=== PATIENT | male | born 1945 | race Caucasian/White ===

== ENCOUNTER → 2018-02-04 | Day surgery (SDC) | payer BC ==
[2018-01-24 09:08] VITALS: BMI 25.0
[~2018-02-04] VITALS: Ht 175.3 cm; Wt 77.3 kg
[~2018-02-04] MED LIST: ALFA250T PO; CHOL1000 PO; GARLTAB3 PO; LIDOCAINE HCL 2% 2 ML VIAL (20MG/ML) ONE; MIDAZOLAM HCL 1 MG/ML 2ML VIAL ONE; ONDANSETRON INJ 2 MG/ML 2 ML VIAL ONE; PROB1TAB16 PO; PROPOFOL IV EMULSION 10 MG/ML 20 ML VIAL ONE; SODIUM CHLORIDE 0.9% 500ML 500 ML IV ONE; [UNRECOGNIZED DRUG - CODE] PO; [UNRECOGNIZED DRUG - OTHER] PO
[2018-02-04 08:00] VITALS: Ht 175.3 cm; Wt 77.3 kg
--- NOTE | 2018-02-04 08:39 | Endo History and Physical ---
History & Physical Date of Service: Feb 04, 2018. Chief Complaint: SCREENING Referring Physician: DR. DICKINSON History of Present Illness 72 yo CM who presents for screening colonoscopy. Past Surgical History Hx Cardiac Surgery: No Hx Internal Defibrillator: No Hx Pacemaker: No Hx Abdominal Surgery: No Hx of Implantable Prosthesis: No Hx Post-Op Nausea and Vomiting: No Hx Cancer Surgery: Yes (BCC REMOVED, MELANOMA REMOVED) Hx Thoracic Surgery: No Hx Orthopedic: Yes (R RCR, L KNEE MENISCUS REPAIR) Hx Urinary Tract Surgery: No Family History None Social History Smoking Status: Never Smoker Hx Substance Use: No Hx Alcohol Use: Yes (BEER--A DOZEN A WEEK) Allergies Coded Allergies: No Known Allergies (Unverified , 02/04/18) Current Medications Reported Home Medications Medications Dose Route/Sig Max Daily Dose Days Date Category [Garlic] 1 Dose PO DAILY 01/24/18 Reported Vitamin D3 (Cholecalciferol) 1,000 Unit Tab 1 Tab PO DAILY 01/24/18 Reported Isabella 250 Mg Tab 1 Tab PO DAILY 01/24/18 Reported Preb-2 (Prebiotic Product) 1 David David 1 Tab PO DAILY 01/24/18 Reported Probiotic (Probiotic Product) 1 Tab Tab 1 Tab PO DAILY 01/24/18 Reported [Shaklee Vitamin] 1 Dose PO DAILY 01/24/18 Reported Vital Signs Weight (Kilograms): 77.27 Height (Feet): 5 Height (Inches): 9 Date Time Temp Pulse Resp B/P (MAP) Pulse Ox O2 Delivery O2 Flow Rate FiO2 02/04/18 08:25 36.2 80 18 125/96 (106) 98 Room Air Physical Exam General Appearance: WD/WN, no apparent distress Respiratory/Chest: Auscultation: breath sounds normal Cardiovascular: Heart Auscultation: RRR Abdomen: Bowel Sounds: normal Inspection & Palpation: soft, non-distended, no tenderness, guarding & rebound Assessment and Plan Assessment: 72 yo CM who presents for screening colonoscopy. Plan: Proceed with colonoscopy.
--- NOTE | 2018-02-04 09:00 | Discharge Instructions ---
Endoscopy Patient Instructions Date / Procedure(s) Performed Feb 04, 2018. Colonoscopy Allergy Information Coded Allergies: No Known Allergies (Unverified , 02/04/18) Discharge Date / Findings Feb 04, 2018. Diverticulitis in Sigmoid colon Diverticulosis Internal hemorrhoids Medication Instructions OK to resume all medications today as prescribed Reported Home Medications Medications Dose Route/Sig Max Daily Dose Days Date Category [Garlic] 1 Dose PO DAILY 01/24/18 Reported Vitamin D3 (Cholecalciferol) 1,000 Unit Tab 1 Tab PO DAILY 01/24/18 Reported Kings 250 Mg Tab 1 Tab PO DAILY 01/24/18 Reported Preb-2 (Prebiotic Product) 1 David David 1 Tab PO DAILY 01/24/18 Reported Probiotic (Probiotic Product) 1 Tab Tab 1 Tab PO DAILY 01/24/18 Reported [Shaklee Vitamin] 1 Dose PO DAILY 01/24/18 Reported Provider Instructions Activity Restrictions - No exercising or heavy lifting for 24 hours. - Do not drink alcohol the day of the procedure. - Do not drive a car or operate machinery until the day after the procedure. - Do not make any important decisions or sign important papers in 24 hours after the procedure. Following Day: - Return to full activity which may include returning to work/school. Diet Start your diet with liquids and light foods (jello, soup, juice, toast). Then eat your usual diet if not nauseated. Treatment For Common After Affects For mild abdominal pain, bloating, or excessive gas: - Rest - Eat lightly - Lie on right side Follow-Up Information Follow-up with DR. DICKINSON as scheduled Anesthesia Information What You Should Know You have had a procedure that required some medicine to reduce anxiety and discomfort. This treatment is called moderate sedation. After receiving the treatment, you may be sleepy, but you will be able to breathe on your own. The effects of the treatment may last for several hours. Follow these instructions along with Activity/Diet recommendations noted above: * Do NOT do anything where dizziness or clumsiness would be dangerous. * Rest quietly at home today, then you can be up and about tomorrow. * Have a responsible person stay with you the rest of today. * You may have had an I.V. today. If so, you may take the dressing off later today. Recommendations Call your doctor if: * Trouble breathing * Continuous vomiting for more than 24 hours * Temperature above 101 degrees * Severe abdominal pain or bloating * Pain not relieved by pain medicine ordered * There is increased drainage or redness from any incision * A large amount of rectal bleeding greater than 2-3 tablespoons. (If you had a polyp/s removed or have hemorrhoids, a small amount of blood - from the rectum is to be expected.) * You have any unanswered questions or concerns. IN THE EVENT OF A SERIOUS EMERGENCY, GO TO THE NEAREST EMERGENCY ROOM Your discharge instructions were prepared by provider Danielito Maria. Patient Instructions Signature Page Bladimir Cleveland Patient (or Guardian) Signature/Date: I have read and understand the instructions given to me by my caregivers. Caregiver/RN/Doctor Signature/Date: The above-named patient and/or guardian has received patient instructions on this date. + Original Patient Signature Page (only) stays with chart. Please make copy for patient.
--- NOTE | 2018-02-04 09:12 | GI REPORT ---
Patient Name: Bladimir Cleveland Procedure Date: 02/04/2018 8:42 AM Date of : 1945 Admit Type: Outpatient Age: 72 Gender: Male Attending MD: Danielito Maria DO Procedure: Colonoscopy Providers: Danielito Maria DO Referring MD: Matt Vanegas Indications: High risk colon cancer surveillance: Personal history of colonic polyps Medicines: Monitored Anesthesia Care Complications: No immediate complications. Estimated Blood Loss: Estimated blood loss: none. Procedure: Pre-Anesthesia Assessment: - Prior to the procedure, a History and Physical was performed, and patient medications and allergies were reviewed. The patient's tolerance of previous anesthesia was also reviewed. The risks and benefits of the procedure and the sedation options and risks were discussed with the patient. All questions were answered, and informed consent was obtained. Prior Anticoagulants: The patient has taken no previous anticoagulant or antiplatelet agents. ASA Grade Assessment: I - A normal, healthy patient. After reviewing the risks and benefits, the patient was deemed in satisfactory condition to undergo the procedure. After I obtained informed consent, the scope was passed under direct vision. Throughout the procedure, the patient's blood pressure, pulse, and oxygen saturations were monitored continuously. The scope was introduced through the anus and advanced to the terminal ileum. The colonoscopy was performed without difficulty. The patient tolerated the procedure well. The quality of the bowel preparation was good. The terminal ileum, ileocecal valve, appendiceal orifice, and rectum were photographed. Findings: The perianal and digital rectal examinations were normal. Multiple small-mouthed diverticula were found in the sigmoid colon. A single diverticulum was found in the sigmoid colon with pus noted at the opening. Non-bleeding internal hemorrhoids were found during retroflexion. The hemorrhoids were small. Impression: - Diverticulosis in the sigmoid colon. - Non-bleeding internal hemorrhoids. - No specimens collected. Recommendation: - Resume previous diet. - Continue present medications. - Repeat colonoscopy in 5 years for surveillance. - Return to primary care physician as previously scheduled. Danielito Maria DO 02/04/2018 9:12:18 AM This report has been signed electronically. Note Initiated On: 02/04/2018 8:42 AM Number of Addenda: 0 I attest to the content of the Intraoperative Record and orders documented therein, exceptions below {[id number]}
[2018-02-04 09:34] VITALS: BP 107/77; PULSE 64; O2SAT 98
--- NOTE | 2018-02-04 10:02 | Anesthesiology Progress Note ---
Anesthesia Post Op Note Date & Time Feb 04, 2018 at 10:02 Vital Signs Pain Intensity: 0 Vital Signs Past 12 Hours Date Time Temp Pulse Resp B/P (MAP) Pulse Ox O2 Delivery O2 Flow Rate FiO2 02/04/18 09:34 64 18 107/77 (87) 98 Room Air 02/04/18 09:19 69 18 111/75 (87) 95 Room Air 02/04/18 09:04 36.5 71 16 99/70 (80) 97 Room Air 02/04/18 08:25 36.2 80 18 125/96 (106) 98 Room Air Notes Mental Status: alert / awake / arousable, participated in evaluation Pt Amnestic to Procedure: Yes Nausea / Vomiting: adequately controlled Pain: adequately controlled Airway Patency, RR, SpO2: stable & adequate BP & HR: stable & adequate Hydration State: stable & adequate Anesthetic Complications: no major complications apparent
== END | disposition home or self-care (01) ==
LOC: C.GI 07:49
PROVIDERS: ATTEND Internal Medicine
DX: Z12.11 Encounter for screening for malignant neoplasm of colon (principal); K57.30 Diverticulosis of large intestine without perforation or abscess without bleeding; K64.8 Other hemorrhoids; Z86.010 Personal history of colon polyps; Z85.828 Personal history of other malignant neoplasm of skin

== ENCOUNTER 2019-04-11 10:32 | Observation (INO) ==
[2019-04-11] MEDS ORDERED: SODIUM CHLORIDE 0.9% 1000ML 1,000 ML IV ONE (10:59)
[2019-04-11] MEDS ORDERED: dilTIAZem HCl 5 MG/ML 5 ML VIAL IV STA (10:59)
[2019-04-11] MEDS ORDERED: dilTIAZem HCL 125 MG in DEXTROSE 5% 100 ML IV SCH (11:00)
[2019-04-11 11:09] LABS: Basophils # (auto) 0.04 K/uL (0-0.2); Basophils % (auto) 0.5 %; Eosinophils # (auto) 0.14 K/uL (0-0.5); Eosinophils % (auto) 1.7 %; Hematocrit (blood only) 47.2 % (42-52); Hemoglobin 17.2 g/dL (14.0-18.0); Immature Granulocytes # (auto) 0.02 K/uL (0.00-0.02); Immature Granulocytes % (auto) 0.2 %; Lymphocytes # (auto) 1.96 K/uL (1.2-3.4); Lymphocytes % (auto) 23.4 %; Mean Corpuscular Hemoglobin 33.1 pg (25-34); Mean Corpuscular Hgb Conc 36.4 g/dL (32-36); Mean Corpuscular Volume 90.9 fL (80-100); Mean Platelet Volume 8.4 fL (7.4-10.4); Monocytes # (auto) 0.71 K/uL (0.11-0.59); Monocytes % (auto) 8.5 %; Neutrophils # (auto) 5.52 K/uL (1.4-6.5); Neutrophils % (auto) 65.7 %; Platelet Count 219 K/uL (130-400); RDW Standard Deviation 39.8 fL (36.4-46.3); Red Blood Count 5.19 M/uL (4.7-6.1); White Blood Count 8.39 K/uL (4.8-10.8)
[2019-04-11 11:27] LABS: Alanine Aminotransferase 23 U/L (12-78); Aspartate Aminotransferase 18 U/L (15-37); BUN Creatinine Ratio 13.7 (10-20); Blood Urea Nitrogen 16 mg/dl (7-18); Calcium 9.1 mg/dl (8.5-10.1); Carbon Dioxide 29 mmol/L (21-32); Chloride 103 mmol/L (98-107); Creatinine Clr Calc Pharmacy 60.3 ml/min; Est GFR (African American) 73.5; Est GFR (Non-African American) 63.4; Glucose 100 mg/dl (70-99); Lipase 135 U/L (73-393); Potassium 3.8 mmol/L (3.5-5.1); Sodium 139 mmol/L (136-145)
--- NOTE | 2019-04-11 11:28 | XRay Report ---
XR chest 1V portable CLINICAL HISTORY: Atypical chest pain COMPARISON STUDY: No previous studies for comparison. FINDINGS: The heart is at the upper limits of normal in size. There is no failure. There is no focal pulmonary consolidation. There are no pleural effusions. 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 Electronically signed by: Fritz Murry M.D. 04/11/2019 11:27 AM
[2019-04-11 11:38] LABS: Albumin Globulin Ratio 0.9 (0.9-2); Alkaline Phosphatase 65 U/L (45-117); Bilirubin,Total 0.7 mg/dl (0.2-1); Globulin 4.4 gm/dl (2.5-4.0); Total Protein 8.4 gm/dl (6.4-8.2); Troponin I < 0.015 ng/ml (0-0.045)
--- NOTE | 2019-04-11 13:04 | History & Physical Report ---
Date of Service April 11, 2019 Assessment & Plan (1) Atrial fibrillation with rapid ventricular response: Admit patient to PCU on telemetry for observation for new onset of atrial fibrillation with RVR Vital signs every 4 hours Continue diltiazem drip until patient converts medically to normal sinus rhythm Started Xarelto 20 mg p.o. daily since patient is at risk of having a stroke per CHAD2 score for afib 1.9 per year Started atorvastatin 40 mg p.o. nightly Aspirin 81 mg daily TSH normal. Pending BNP and troponin, coags We will check in a.m. fasting lipids, A1c TTE pending and ultrasound of the lower extremities for possible DVT that could provoke A. fib's. Patient denies any recent travel. Consulted cardiology for new onset of A. fib's DVT prophylaxis Xarelto, ambulation 3 times daily. Full code Present on Admission?: Yes History of Present Illness Chief Complaint: Palpitations and shortness of breath Primary Care Provider: Matt Vanegas MD Patient is a 73 years old male with unremarkable past medical history presents to the emergency room with a complaint of palpitations that has been ongoing since this morning stating that he feels weird in his chest and his chest feels like empty. Patient said he just is getting out of cold that started on Saturday this week. Patient said that he did not have a sick contact but he and his are in involved in daycare. Patient takes only multivitamin. He reports to being very healthy, eating good and healthy and exercising several times a week. Patient denies fever, chills, chest pain, shortness of breath, syncope, near syncope, headache, abdominal pain, frequency, urgency, hematuria, dysuria, melena. Labs are reviewed and EKG: Viable cell 8.39, hemoglobin 17.2, hematocrit 47.2, platelets 219, sodium 139, potassium 3.8, chloride 103, BUN 16, creatinine 1.14 GFR 63.4, TSH 1.26. Urine analysis pending, BNP pending, tro ponin pending. EKG significant for atrial fibrillation with rapid ventricular response of 147 bpm. Right bundle branch block inferior infarct age undetermined, nonspecific T waves abnormality in the lateral leads. I did diltiazem drip and bolus were started in the emergency some room for the rate control. Decision was made to admit patient for observation on telemetry for A. fib's with RVR and for further rate work-up. Allergies Allergy/AdvReac Type Severity Reaction Status Date / Time No Known Allergies Allergy Unverified 04/11/19 11:49 Home Medications Home Medications Medication Instructions Recorded Confirmed Type multivitamin 1 tab PO DAILY 04/11/19 04/11/19 History Past Med/Surg History Social History Preferred Language: [place] Citizen Feels Safe at Home: Yes Smoking Status: Never smoker Review of Systems Review of Systems: All systems reviewed & are unremarkable except as noted in HPI & below Physical Exam Constitutional: WD/WN, vitals as above well developed Eyes: PERRL, conjunctivae normal, anicteric sclerae ENMT: external ear and nose normal, oropharynx normal Neck: trachea midline, no thyromegaly Respiratory: normal respiratory effort, lungs clear to auscultation Cardiovascular: Rate/Rhythm: + irregularly irregular Heart Sounds: normal S1 and normal S2 Vessels: dorsalis pedis pulses present Gastrointestinal (Abdomen): normal bowel sounds, soft, nontender, no hepatosplenomegaly Musculoskeletal: no cyanosis or clubbing, extremities motor strength 5/5 Skin: no rashes, warm and dry Neurologic: patellar DTR's 2+ bilat, sensation intact Psychiatric: A+Ox3, euthymic affect Lymphatic: no cervical or axillary lymphadenopathy Results & Data Vital Signs (Past 12 Hours) Vital Signs Temp Pulse Resp BP Pulse Ox 04/11/19 10:59 97 04/11/19 10:37 36.3 C L 78 16 139/94 96 Code Status & VTE Plan Code Status Full code VTE Prophylaxis Plan VTE Prophylaxis will be ordered: Yes PG Care Time/CCT Total # of Minutes Spent Total Time Spent with Patient: Total time spent is greater than 50% in coordination of care (as documented) at patient's floor/unit and/or counseling patient:
[2019-04-11] MEDS ORDERED: HydrALAZINE 10 MG TAB PO PRN (13:46)
[2019-04-11 13:49] LABS: Influenza A virus by PCR Neg for Influ A (Neg); Influenza B virus by PCR Neg for Influ B (Neg)
[2019-04-11] MEDS ORDERED: ALUMINUM/MAGNESIUM SUSP 30 ML UDC PO PRN (14:29)
[2019-04-11] MEDS ORDERED: MAGNESIUM HYDROXIDE SUSP 30 ML UDC PO PRN (14:29)
[2019-04-11] MEDS ORDERED: OXYCODONE/ACETAMINOPHEN 5mg/325mg TAB PO PRN (14:29)
[2019-04-11] MEDS ORDERED: ACETAMINOPHEN 325 MG TAB PO PRN (14:29)
[2019-04-11] MEDS ORDERED: POLYETHYLENE (MIRALAX) 17 GM PACK PO PRN (14:29)
[2019-04-11] MEDS ORDERED: ZOLPIDEM TARTRATE 5 MG TAB PO PRN (14:29)
[2019-04-11] MEDS ORDERED: ONDANSETRON INJ 2 MG/ML 2 ML VIAL IV PRN (14:29)
[2019-04-11 14:54] LABS: Partial Thromboplastin Ratio 0.9; Partial Thromboplastin Time 25.6 Seconds (21.0-31.0); Prothrombin Time 10.4 Seconds (9.0-12.0)
[2019-04-11] MEDS ORDERED: RIVAROXABAN 20 MG TAB PO SCH (16:30)
[2019-04-11] MEDS: ASPIRIN 81 MG ECTAB PO SCH (17:01)
[2019-04-11] MEDS: ATORVASTATIN 40 MG TAB PO SCH (17:01)
--- NOTE | 2019-04-11 17:47 | Emergency Department Note ---
Entered by Mariely Reeves acting as a scribe for History of Present Illness General Chief complaint: Arrhythmia/Palpitations Stated complaint: IRREGULAR HEARTBEAT Source: patient History of Present Illness Provider complaint: Palpatations Onset (ago): day(s) 1 Location: chest Radiation: non-radiation Maximum Pain Intensity: 0 Relieved By: + none Exacerbated By: + none Associated symptoms: + denies other symptoms (Diarrhea ) and + cough; no chest pain and no nausea/vomiting The patient is a 73 year old male who presents to the Emergency Room with complaints of palpations that began yesterday. The patient states the symptoms do not radiate anywhere else on the body and are not relieved nor exacerbated by anything specific. The patient reports experiencing a cough but denies any nausea/vomiting. The patient denies experiencing any diarrhea or chest pain. The patient notes that he gets a jittery feeling. Patient denies any chest pain or shortness of breath. No nausea vomiting or diarrhea. He takes no medications at this time. He does feel his heart racing. Home Medications Home Medications Medication Instructions Recorded Confirmed Type multivitamin 1 tab PO DAILY 04/11/19 04/11/19 History Allergies Allergy/AdvReac Type Severity Reaction Status Date / Time No Known Allergies Allergy Unverified 04/11/19 11:49 Past Med/Surg History Medical History Atrial fibrillation with rapid ventricular response Family History Other Family history non-contributory Social History Preferred Language: Kinyarwanda Communication Ability: Effective Iron Bender Required: No Beliefs That Will Affect Care: None Current Living Situation: Spouse Feels Safe at Home: Yes Smoking Status: Former smoker Second Hand Exposure: Yes (Vists the [employer] most afternoons) ; Hx Alcohol Use: Yes Alcohol type: beer Hx Substance Use: No Review of Systems See HPI for pertinent positives & negatives. and A total of 10 systems reviewed and were otherwise negative Physical Exam Vital Signs Vital Signs - 24 hr 04/11/19 10:37 04/11/19 10:55 04/11/19 10:59 Temperature 36.3 C L Temperature Source Oral Sepsis Recent Fever Within 48 Hours No Sepsis New/Unexplained Change in Mental Status No Sepsis Action Taken by Nursing No Action Required Pulse Rate 78 118 H Pulse Rate from SpO2 Sensor 98 H Respiratory Rate 16 23 Respiratory Effort / Characteristics Non-Labored Respiratory Depth Normal Respiratory Pattern Regular Blood Pressure 139/94 122/88 Blood Pressure Mean 109 99 Blood Pressure Position Sitting Pulse Oximetry 96 95 97 Oxygen Delivery Method Room Air Room Air 04/11/19 11:00 04/11/19 11:16 04/11/19 11:30 Temperature Temperature Source Sepsis Recent Fever Within 48 Hours Sepsis New/Unexplained Change in Mental Status Sepsis Action Taken by Nursing Pulse Rate 121 H 108 H 93 H Pulse Rate from SpO2 Sensor 95 H 92 H 69 Respiratory Rate 18 27 H 28 H Respiratory Effort / Characteristics Respiratory Depth Respiratory Pattern Blood Pressure 137/85 127/78 109/74 Blood Pressure Mean 102 94 85 Blood Pressure Position Pulse Oximetry 95 97 95 Oxygen Delivery Method 04/11/19 11:45 04/11/19 12:00 04/11/19 12:14 Temperature Temperature Source Sepsis Recent Fever Within 48 Hours Sepsis New/Unexplained Change in Mental Status Sepsis Action Taken by Nursing Pulse Rate 105 H 105 H 107 H Pulse Rate from SpO2 Sensor 84 85 93 H Respiratory Rate 21 19 27 H Respiratory Effort / Characteristics Respiratory Depth Respiratory Pattern Blood Pressure 113/78 131/83 131/83 Blood Pressure Mean 89 99 99 Blood Pressure Position Pulse Oximetry 94 96 95 Oxygen Delivery Method 04/11/19 12:16 04/11/19 12:30 04/11/19 12:45 Temperature Temperature Source Sepsis Recent Fever Within 48 Hours Sepsis New/Unexplained Change in Mental Status Sepsis Action Taken by Nursing Pulse Rate 121 H 106 H 91 H Pulse Rate from SpO2 Sensor 95 H 77 69 Respiratory Rate 20 24 23 Respiratory Effort / Characteristics Respiratory Depth Respiratory Pattern Blood Pressure 135/75 130/87 121/77 Blood Pressure Mean 95 101 91 Blood Pressure Position Pulse Oximetry 95 95 95 Oxygen Delivery Method GENERAL: Well appearing. Wearing hospital gown. Talking in full sentences. EYE EXAM: normal conjunctiva. OROPHARYNX: no exudate, no erythema, lips, buccal mucosa, and tongue normal and mucous membranes are moist NECK: supple, no nuchal rigidity, no adenopathy, non-tender LUNGS: Clear to auscultation. Normal chest wall mechanics HEART: Tachycardic rate and irregularly irregular rhythm. S1 normal and S2 normal ABDOMEN: abdomen soft, non-tender, normo-active bowel sounds, no masses, no rebound or guarding. BACK: Back is symmetrical on inspection and there is no deformity, no midline tenderness, no CVA tenderness. SKIN: no rashes and no bruising UPPER EXTREMITIES: upper extremities are grossly normal. LOWER EXTREMITIES: No pitting edema. Calves equal bilaterally. NEURO EXAM: Normal sensorium, cranial nerves II-XII grossly intact, normal speech, no gross weakness of arms, no gross weakness of legs. Course ED COURSE: Vital signs were reviewed and showed tachycardic The patients medical record was reviewed The above diagnostic studies were performed and reviewed. ED treatments and interventions as stated above. The patient was evaluated in room B 11. A complete history and physical examination was performed. Upon reevaluation, the patient is resting comfortably with his heart rate trending down. I discussed my findings with the patient and he understands and agrees with the treatment plan. Based on the patients age, coexisting illnesses, exam and lab findings the decision to treat as an inpatient was made. The patient remained stable while under my care. The patient will be evaluated for further management. She was accepted by Dr. Ernie Díaz. Administered Medications Aspirin (Ecotrin Ectab) 81 mg PO [facility] Stop: 05/11/19 14:59 Last Admin: 04/11/19 17:01 Dose: 81 mg Documented by: [id number] Atorvastatin Calcium (Lipitor) 40 mg PO [facility] Stop: 05/11/19 14:59 Last Admin: 04/11/19 17:01 Dose: 40 mg Documented by: [id number] Diltiazem HCl 125 mg/ Dextrose 125 mls @ 0 mls/hr IV .Q0M [facility]; Protocol Stop: 05/11/19 10:59 Last Titration: 04/11/19 13:39 Dose: 5 mg/hr, 5 mls/hr Documented by: [id number] Cosigned by: [id number] Admin: 04/11/19 11:57 Dose: 5 mg/hr, 5 mls/hr Documented by: [id number] Cosigned by: [id number] Discontinued Medications Diltiazem HCl (Cardizem) 5 mg IV [facility] Stop: 04/11/19 11:00 Last Admin: 04/11/19 11:04 Dose: 5 mg Documented by: [id number] Cosigned by: [id number] Sodium Chloride (Nss 1000ml) 1,000 mls @ 999 mls/hr IV .Q1H1M [facility] Stop: 04/11/19 11:59 Last Infusion: 04/11/19 12:29 Dose: 0 mls/hr Documented by: [id number] Admin: 04/11/19 11:10 Dose: 999 mls/hr Documented by: [id number] Medical Decision Making Differential Diagnosis Differential diagnosis: Etiologies such as shingles, musculoskeletal pain, pericarditis, myocarditis, cardiac ischemia, pericardial tamponade, pneumonia, pneumothorax, pleural effusion, hemothorax, pleurisy, aortic pathology, pulmonary embolism, intra- abdominal process, as well as others were considered. Medical Records Attestation: I reviewed the patient's medical records. Home Medications Current Medication List: was personally reviewed by me Laboratory Data Attestation: I reviewed the patient's lab results. Result diagrams: 04/11/19 10:59 04/11/19 10:56 Lab Results 04/11/19 04/11/19 04/11/19 Range/Units 10:56 10:56 10:56 WBC (4.8-10.8) K/uL RBC (4.7-6.1) M/uL Hgb (14.0-18.0) g/dL Hct (42-52) % MCV (80-100) fL MCH (25-34) pg MCHC (32-36) g/dL RDW Std Deviation (36.4-46.3) fL RDW Coeff of Brandon (11.5-14.5) % Plt Count (130-400) K/uL MPV (7.4-10.4) fL Immature Gran % (Auto) % Neut % (Auto) % Lymph % (Auto) % [place] % (Auto) % Eos % (Auto) % Baso % (Auto) % Immature Gran # (Auto) (0.00-0.02) K/uL Neut # (Auto) (1.4-6.5) K/uL Lymph # (Auto) (1.2-3.4) K/uL [place] # (Auto) (0.11-0.59) K/uL Eos # (Auto) (0-0.5) K/uL Baso # (Auto) (0-0.2) K/uL PT 10.4 (9.0-12.0) Seconds INR 1.0 (0.9-1.1) APTT 25.6 (21.0-31.0) Seconds PTT Ratio 0.9 Sodium 139 (136-145) mmol/L Potassium 3.8 (3.5-5.1) mmol/L Chloride 103 (98-107) mmol/L Carbon Dioxide 29 (21-32) mmol/L Anion Gap 7.0 (3-11) BUN 16 (7-18) mg/dl Creatinine 1.14 (0.6-1.4) mg/dl Est Cr Clr Drug Dosing 60.3 ml/min Est GFR ( Amer) 73.5 Est GFR (Non-Af Amer) 63.4 BUN/Creatinine Ratio 13.7 (10-20) Glucose 100 H (70-99) mg/dl Calcium 9.1 (8.5-10.1) mg/dl Total Bilirubin 0.7 (0.2-1) mg/dl AST 18 (15-37) U/L ALT 23 (12-78) U/L Alkaline Phosphatase 65 (45-117) U/L Troponin I < 0.015 (0-0.045) ng/ml NT-Pro-B Natriuret Pep 1038 H (0-900) pg/ml Total Protein 8.4 H (6.4-8.2) gm/dl Albumin 4.0 (3.4-5.0) gm/dl Globulin 4.4 H (2.5-4.0) gm/dl Albumin/Globulin Ratio 0.9 (0.9-2) Lipase 135 (73-393) U/L TSH 1.260 (0.300-4.500) uIu/ml 04/11/19 Range/Units 10:59 WBC 8.39 (4.8-10.8) K/uL RBC 5.19 (4.7-6.1) M/uL Hgb 17.2 (14.0-18.0) g/dL Hct 47.2 (42-52) % MCV 90.9 (80-100) fL MCH 33.1 (25-34) pg MCHC 36.4 H (32-36) g/dL RDW Std Deviation 39.8 (36.4-46.3) fL RDW Coeff of [place] 12.0 (11.5-14.5) % Plt Count 219 (130-400) K/uL MPV 8.4 (7.4-10.4) fL Immature Gran % (Auto) 0.2 % Neut % (Auto) 65.7 % Lymph % (Auto) 23.4 % [place] % (Auto) 8.5 % Eos % (Auto) 1.7 % Baso % (Auto) 0.5 % Immature Gran # (Auto) 0.02 (0.00-0.02) K/uL Neut # (Auto) 5.52 (1.4-6.5) K/uL Lymph # (Auto) 1.96 (1.2-3.4) K/uL [place] # (Auto) 0.71 H (0.11-0.59) K/uL Eos # (Auto) 0.14 (0-0.5) K/uL Baso # (Auto) 0.04 (0-0.2) K/uL PT (9.0-12.0) Seconds INR (0.9-1.1) APTT (21.0-31.0) Seconds PTT Ratio Sodium (136-145) mmol/L Potassium (3.5-5.1) mmol/L Chloride (98-107) mmol/L Carbon Dioxide (21-32) mmol/L Anion Gap (3-11) BUN (7-18) mg/dl Creatinine (0.6-1.4) mg/dl Est Cr Clr Drug Dosing ml/min Est GFR ( Amer) Est GFR (Non-Af Amer) BUN/Creatinine Ratio (10-20) Glucose (70-99) mg/dl Calcium (8.5-10.1) mg/dl Total Bilirubin (0.2-1) mg/dl AST (15-37) U/L ALT (12-78) U/L Alkaline Phosphatase (45-117) U/L Troponin I (0-0.045) ng/ml NT-Pro-B Natriuret Pep (0-900) pg/ml Total Protein (6.4-8.2) gm/dl Albumin (3.4-5.0) gm/dl Globulin (2.5-4.0) gm/dl Albumin/Globulin Ratio (0.9-2) Lipase (73-393) U/L TSH (0.300-4.500) uIu/ml Imaging Data Radiologist's Impression: Radiology results as stated below per my review and the radiologist's interpretation: XR chest 1V portable CLINICAL HISTORY: Atypical chest pain COMPARISON STUDY: No previous studies for comparison. FINDINGS: The heart is at the upper limits of normal in size. There is no failure. There is no focal pulmonary consolidation. There are no pleural effusions. 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 IMPRESSION: No active disease in the chest. Electronically signed by: Fritz Murry M.D. 04/11/2019 11:27 AM ECG Data Attestation: I personally reviewed and interpreted this ECG as follows: Indication: chest pain Rate (beats per minute): 146 Rhythm: atrial fibrillation (RVR) Findings: + RBBB (Incomplete change septal interior lateral ) and + left axis deviation (Incomplete ) Blood Pressure Blood Pressure Findings: Elevated blood pressure Blood Pressure Disposition: Referred to patients primary care provider ISAAC Narrative Patient is a 73-year-old male who presents the ER for palpitations. Was called to the room by nursing staff as he was found to be in A. fib with RVR and heart rate in the 140s. He was fairly otherwise asymptomatic. IV was established blood work was obtained. Labs show no significant leukocytosis or anemia. INR was unremarkable. BMP along with LFTs bilirubin and troponin was negative. Lipase and TSH unremarkable. Chest x-ray was unremarkable. EKG showed A. fib with RVR and heart rate in the 140s. Patient was given a bolus of Cardizem and placed on a Cardizem drip. Heart rate trended down to the low 100s high 90s. He was monitored closely. Discussed with the hospitalist and was admitted for A. fib with RVR. Impression & Plan Atrial fibrillation with rapid ventricular response, Palpitations Critical Care Time Critical Care Time: Yes Total Critical Care Time: 35 I have personally spent 35 minutes of critical care time in the direct manag ement of this patient. This includes bedside care, interpretation of diagnostic studies, and testing, discussion with consultants, patient, and family members, and other required patient management activities. This 35 minutes is in excess of all separately billable procedures. Discharge Plan Visit Data *Final* Discharge Date/Time: 04/11/19 13:27 Chief Complaint: Arrhythmia/Palpitations Stated Complaint: IRREGULAR HEARTBEAT ED Provider: Frank Teixeira Discharge Problem: Atrial fibrillation with rapid ventricular response, Palpitations Patient Disposition: Admitted As Inpatient Discharge Instructions Interventions: ED Discharge Assessment Last Done: 04/11/19 13:27 The scribe's documentation has been prepared under my direction and personally reviewed by me in its entirety. I confirm that the note above accurately reflects all work, treatment, procedures, and medical decision making performed by me.
--- NOTE | 2019-04-11 17:53 | Ultrasound Report ---
US venous doppler LE BI CLINICAL HISTORY: Leg pain. Atrial fibrillation. COMPARISON STUDY: No previous studies for comparison. FINDINGS: Real-time and color flow Doppler imaging were performed. Flow was seen within the femoral, popliteal and calf veins with no intraluminal thrombus demonstrated. The saphenous vein is patent. IMPRESSION: No evidence of lower extremity DVT. Electronically signed by: Fritz Murry M.D. 04/11/2019 5:51 PM
[2019-04-12 01:58] LABS: Appearance Urine Clear (Clear); Bilirubin Urine Negative (Negative); Blood Urine Negative (Negative); Color Urine Yellow; Glucose Urine UA Negative (Negative); Ketones Urine Trace (Negative); Leukocyte Esterase Urine Negative (Negative); Nitrite Urine Negative (Negative); Protein Urine Negative (Negative); Specific Gravity Urine 1.019 (1.000-1.030); Urobilinogen Urine Negative (Negative); pH Urine 6.5 (4.5-7.5)
[2019-04-12 07:31] LABS: Basophils # (auto) 0.04 K/uL (0-0.2); Basophils % (auto) 0.6 %; Eosinophils # (auto) 0.15 K/uL (0-0.5); Eosinophils % (auto) 2.2 %; Hematocrit (blood only) 44.2 % (42-52); Immature Granulocytes # (auto) 0.03 K/uL (0.00-0.02); Immature Granulocytes % (auto) 0.4 %; Lymphocytes # (auto) 1.73 K/uL (1.2-3.4); Lymphocytes % (auto) 25.8 %; Mean Corpuscular Hemoglobin 33.3 pg (25-34); Mean Corpuscular Hgb Conc 36.2 g/dL (32-36); Mean Corpuscular Volume 91.9 fL (80-100); Mean Platelet Volume 8.2 fL (7.4-10.4); Monocytes # (auto) 0.58 K/uL (0.11-0.59); Monocytes % (auto) 8.6 %; Neutrophils # (auto) 4.18 K/uL (1.4-6.5); Neutrophils % (auto) 62.4 %; Platelet Count 193 K/uL (130-400); RDW Coefficient of Variation 12.1 % (11.5-14.5); RDW Standard Deviation 40.6 fL (36.4-46.3); Red Blood Count 4.81 M/uL (4.7-6.1); White Blood Count 6.71 K/uL (4.8-10.8)
[2019-04-12] MEDS: ATORVASTATIN 40 MG TAB PO SCH (08:12)
[2019-04-12] MEDS: ASPIRIN 81 MG ECTAB PO SCH (08:12)
[2019-04-12 08:13] LABS: Albumin Globulin Ratio 0.9 (0.9-2); Albumin Level 3.6 gm/dl (3.4-5.0); BUN Creatinine Ratio 13.2 (10-20); Bilirubin,Total 0.9 mg/dl (0.2-1); Calcium 8.9 mg/dl (8.5-10.1); Creatinine Clr Calc Pharmacy 68.4 ml/min; Est GFR (African American) 94.1; Est GFR (Non-African American) 81.2; Globulin 3.9 gm/dl (2.5-4.0); Potassium 4.5 mmol/L (3.5-5.1); Total Protein 7.5 gm/dl (6.4-8.2)
[2019-04-12] MEDS ORDERED: MULTIVITAMIN TAB PO SCH (09:00)
[2019-04-12] MEDS ORDERED: dilTIAZem HCL 120 MG CAPCR PO SCH (10:00)
--- NOTE | 2019-04-12 10:12 | Cardiology Consultation ---
Date of Consultation April 12, 2019 Assessment & Plan (1) Atrial fibrillation with rapid ventricular response: The patient presented with atrial fibrillation and high ventricular rates. He was essentially asymptomatic. In fact, he was able to exercise while in atrial fibrillation without new symptoms. The etiology of his atrial fibrillation is unclear. Certainly age may play a role be otherwise appears to be healthy individual with a structurally normal heart. He is not appear to h ave sleep apnea by history but this could be addressed in the outpatient setting with simple screening. No thyroid dysfunction. No heavy alcohol use. He has responded well to a diltiazem infusion and at this point would seem reasonable to provide continued rate control with oral diltiazem. At some point we will elect to return to sinus rhythm if he does not do so spontaneously. No urgent need for cardioversion. His chads Vasc score is 1. This is based exclusively on his age. This puts him at a relatively low risk for stroke and we can certainly debate then necessity of long-term anticoagulation. However, in the short term he should be anticoagulated in anticipation of a cardioversion. I would agree with rivaroxaban 20 milligrams daily. His rate is well controlled he is feeling well I think he is safe for discharge. He can follow up with me in the clinic in a couple of weeks at which point we will reassess his rhythm and consider cardioversion if necessary. Present on Admission?: Yes History of Present Illness Reason for Consultation: Atrial fibrillation Requesting Physician: Bacilio Attending Physician: Ernie Díaz, History of Present Illness The patient is a 73-year-old gentleman without a past medical history of heart disease who has been experiencing palpitations. Patient states that for many ye ars he has had a skipped beat and a sense of emptiness following this skipped beat. This sensation occurs in the chest. Approximately 36 hours ago he experienced an element of skipped beats and attempted to take his carotid pulse. At that point he noticed that his heart P was quite irregular. He did not feel poorly otherwise. He did not report dizziness or lightheadedness. He had no symptoms of dyspnea or chest discomfort. In general he was unaware of the palpitations. He decided to proceed to bed but the following morning continued to have an abnormal pulse. He performs some exercise and later decided that he should seek an evaluation and came to the emergency room. He was discovered to have atrial fibrillation and high ventricular rates. Was placed on a diltiazem infusion and admitted for observation. Patient states during this entire. He did not feel poorly and actually felt fairly well when he was exercising. He cannot recall any sustained episodes of palpitations in the past. He is very active individual who was accustomed to routine exercise. He denies any exertional symptoms such as dyspnea or chest discomfort. He cannot recall dizziness or lightheadedness at any point. He never recalls a syncopal episode. Allergies Allergy/AdvReac Type Severity Reaction Status Date / Time No Known Allergies Allergy Unverified 04/11/19 11:49 Home Medications Home Medications Medication Instructions Recorded Confirmed Type multivitamin 1 tab PO DAILY 04/11/19 04/11/19 History diltiazem HCl 120 mg PO QAM 30 Days #30 cap 04/12/19 Rx rivaroxaban [Xarelto] 20 mg PO QDD 30 Days #30 tab 04/12/19 Rx Patient History Medical History Atrial fibrillation with rapid ventricular response Family History Other Family history non-contributory Social History Preferred Language: Kazakh Communication Ability: Effective Cocoa Roaster Required: No Beliefs That Will Affect Care: None Current Living Situation: Spouse Feels Safe at Home: Yes Smoking Status: Former smoker Second Hand Exposure: Yes (Vists the [employer] most afternoons) ; Hx Alcohol Use: Yes Alcohol type: beer Hx Substance Use: No Review of Systems Review of Systems: All systems reviewed & are unremarkable except as noted in HPI & below He has some difficulty with sleeping at night but no overt or definite sleep apnea. He denied a history of snoring. He does not have daytime somnolence. Physical Exam Physical Exam: The patient is alert and oriented. Mood and affect appeared normal. He answered all questions appropriately. HEENT: Pupils are equal and reactive to light and accommodation. Extraocular movements are intact. The sclerae are anicteric. Neuro: Cranial nerves intact Neck: Patient's neck is supple. He has palpable carotid pulses bilaterally without bruits on auscultation. There is no evidence of jugular venous distention. The thyroid is not enlarged. Lungs: Clear to auscultation bilaterally. He has good air movement without use of accessory muscles. No rales wheezes or rhonchi. Cardiac: Heart demonstrates an irregular rate and rhythm. Normal S1 and S2. No murmurs on examination. Pulses: The patient has palpable radial pulses bilaterally that are equal in intensity Extremities: There was no evidence of hypoperfusion. There is no cyanosis or clubbing. There is no edema. Skin: I did not appreciate any rashes on examination today. Results & Data Vital Signs (Past 12 Hours) Vital Signs Temp Pulse Resp BP Pulse Ox 04/12/19 07:01 36 C L 69 19 122/81 94 04/12/19 03:35 36.5 C 63 18 106/68 95 04/11/19 23:35 36.6 C 66 20 113/69 95 Laboratory Results Abnormal Lab Results 04/11/19 04/11/19 04/11/19 10:56 10:56 10:56 WBC RBC Hgb Hct MCV MCH MCHC RDW Std Deviation RDW Coeff of Brandon Plt Count MPV Immature Gran % (Auto) Neut % (Auto) Lymph % (Auto) [place] % (Auto) Eos % (Auto) Baso % (Auto) Immature Gran # (Auto) Neut # (Auto) Lymph # (Auto) [place] # (Auto) Eos # (Auto) Baso # (Auto) PT 10.4 INR 1.0 APTT 25.6 PTT Ratio 0.9 Sodium 139 Potassium 3.8 Chloride 103 Carbon Dioxide 29 Anion Gap 7.0 BUN 16 Creatinine 1.14 Est Cr Clr Drug Dosing 60.3 Est GFR ( Amer) 73.5 Est GFR (Non-Af Amer) 63.4 BUN/Creatinine Ratio 13.7 Glucose 100 H Calcium 9.1 Total Bilirubin 0.7 AST 18 ALT 23 Alkaline Phosphatase 65 Troponin I < 0.015 NT-Pro-B Natriuret Pep 1038 H Total Protein 8.4 H Albumin 4.0 Globulin 4.4 H Albumin/Globulin Ratio 0.9 Triglycerides Cholesterol LDL Cholesterol, Calc VLDL Cholesterol, Calc HDL Cholesterol Cholesterol/HDL Ratio Lipase 135 TSH 1.260 Urine Color Urine Appearance Urine pH Ur Specific [place] Urine Protein Urine Glucose (UA) Urine Ketones Urine Blood Urine Nitrite Urine Bilirubin Urine Urobilinogen Ur Leukocyte Esterase Influenza Type A (PCR) Influenza Type B (PCR) 04/11/19 04/11/19 04/12/19 10:59 13:06 01:37 WBC 8.39 RBC 5.19 Hgb 17.2 Hct 47.2 MCV 90.9 MCH 33.1 MCHC 36.4 H RDW Std Deviation 39.8 RDW Coeff of [place] 12.0 Plt Count 219 MPV 8.4 Immature Gran % (Auto) 0.2 Neut % (Auto) 65.7 Lymph % (Auto) 23.4 [place] % (Auto) 8.5 Eos % (Auto) 1.7 Baso % (Auto) 0.5 Immature Gran # (Auto) 0.02 Neut # (Auto) 5.52 Lymph # (Auto) 1.96 [place] # (Auto) 0.71 H Eos # (Auto) 0.14 Baso # (Auto) 0.04 PT INR APTT PTT Ratio Sodium Potassium Chloride Carbon Dioxide Anion Gap BUN Creatinine Est Cr Clr Drug Dosing Est GFR ( Amer) Est GFR (Non-Af Amer) BUN/Creatinine Ratio Glucose Calcium Total Bilirubin AST ALT Alkaline Phosphatase Troponin I NT-Pro-B Natriuret Pep Total Protein Albumin Globulin Albumin/Globulin Ratio Triglycerides Cholesterol LDL Cholesterol, Calc VLDL Cholesterol, Calc HDL Cholesterol Cholesterol/HDL Ratio Lipase TSH Urine Color Yellow Urine Appearance Clear Urine pH 6.5 Ur Specific [place] 1.019 Urine Protein Negative Urine Glucose (UA) Negative Urine Ketones Trace H Urine Blood Negative Urine Nitrite Negative Urine Bilirubin Negative Urine Urobilinogen Negative Ur Leukocyte Esterase Negative Influenza Type A (PCR) Neg for Influ A Influenza Type B (PCR) Neg for Influ B 04/12/19 04/12/19 07:19 07:19 WBC 6.71 RBC 4.81 Hgb 16.0 Hct 44.2 MCV 91.9 MCH 33.3 MCHC 36.2 H RDW Std Deviation 40.6 RDW Coeff of [place] 12.1 Plt Count 193 MPV 8.2 Immature Gran % (Auto) 0.4 Neut % (Auto) 62.4 Lymph % (Auto) 25.8 [place] % (Auto) 8.6 Eos % (Auto) 2.2 Baso % (Auto) 0.6 Immature Gran # (Auto) 0.03 H Neut # (Auto) 4.18 Lymph # (Auto) 1.73 [place] # (Auto) 0.58 Eos # (Auto) 0.15 Baso # (Auto) 0.04 PT INR APTT PTT Ratio Sodium 138 Potassium 4.5 D Chloride 105 Carbon Dioxide 28 Anion Gap 5.0 BUN 12 Creatinine 0.93 Est Cr Clr Drug Dosing 68.4 Est GFR ( Amer) 94.1 Est GFR (Non-Af Amer) 81.2 BUN/Creatinine Ratio 13.2 Glucose 102 H Calcium 8.9 Total Bilirubin 0.9 AST 17 ALT 21 Alkaline Phosphatase 61 Troponin I NT-Pro-B Natriuret Pep Total Protein 7.5 Albumin 3.6 Globulin 3.9 Albumin/Globulin Ratio 0.9 Triglycerides 119 Cholesterol 187 LDL Cholesterol, Calc 117 VLDL Cholesterol, Calc 24 HDL Cholesterol 46 Cholesterol/HDL Ratio 4 Lipase TSH Urine Color Urine Appearance Urine pH Ur Specific [place] Urine Protein Urine Glucose (UA) Urine Ketones Urine Blood Urine Nitrite Urine Bilirubin Urine Urobilinogen Ur Leukocyte Esterase Influenza Type A (PCR) Influenza Type B (PCR) Diagnostic Findings Echocardiogram obtained yesterday reveals preserved LV systolic function without significant valvular heart disease or chamber dilation Venous duplex of the lower extremities did not reveal any evidence of DVT Chest x-ray obtained at the time of admission did not reveal any acute cardiopulmonary process PG Care Time/CCT Total # of Minutes Spent Total Time Spent with Patient: Total time spent is greater than 50% in coordination of care (as documented) at patient's floor/unit and/or counseling patient:
--- NOTE | 2019-04-12 13:29 | Discharge Summary ---
Date of Service April 12, 2019 Admission HPI Per Admitting Provider Patient is a 73 years old male with unremarkable past medical history presents to the emergency room with a complaint of palpitations that has been ongoing since this morning stating that he feels weird in his chest and his chest feels like empty. Patient said he just is getting out of cold that started on Saturday this week. Patient said that he did not have a sick contact but he and his are in involved in daycare. Patient takes only multivitamin. He reports to being very healthy, eating good and healthy and exercising several times a week. Patient denies fever, chills, chest pain, shortness of breath, syncope, near syncope, headache, abdominal pain, frequency, urgency, hematuria, dysuria, melena. Labs are reviewed and EKG: Viable cell 8.39, hemoglobin 17.2, hematocrit 47.2, platelets 219, sodium 139, potassium 3.8, chloride 103, BUN 16, creatinine 1.14 GFR 63.4, TSH 1.26. Urine analysis pending, BNP pending, troponin pending. EKG significant for atrial fibrillation with rapid ventricular response of 147 bpm. Right bundle branch block inferior infarct age undetermined, nonspecific T waves abnormality in the lateral leads. I did diltiazem drip and bolus were started in the emergency some room for the rate control. Decision was made to admit patient for observation on telemetry for A. fib's with RVR and for further rate work-up. Principal Diagnosis New onset atrial fibrillation Discharge Data Allergies Allergy/AdvReac Type Severity Reaction Status Date / Time No Known Allergies Allergy Unverified 04/11/19 11:49 Consultations 04/11/19 12:08 ED Decision to Admit Stat 04/11/19 15:51 Consult Cardiology Routine Ordered Studies 04/11/19 14:29 US venous doppler LE Stat Hospital Course (1) Atrial fibrillation with rapid ventricular response: new diagnosis HR is controlled on Diltiazem drip at 5mg/hr over night transition to Cardizem 120mg qAM, turn off the drip still in atrial fibrillation, will plan to follow up with Dr. Amaya in a few weeks, discuss possible cardioversion if needed for stroke prevention, will place patient on Xarelto 20mg daily echocardiogram was normal, EF 60%, mild AV sclerosis without stenosis Total Time Total Time Spent Total Time Spent (In Minutes): 20 minutes Total Time Includes: Examination of the Patient, Discharge Planning, Medication Reconciliation and Communication With Other Providers (Dr. Amaya) Discharge Plan Discharge Items Patient Disposition: Home - Self-Care Reason For Visit: ATRIAL FIB Discharge Diagnosis: Atrial fibrillation Condition on Discharge: Good Goals: control heart rate with Diltiazem stroke prevention with Xarelto Activity: Resume your previous activity Non-emergency contact: Primary Care Provider and Conservation Educator Call non-emergency contact if: you have any medication questions and your symptoms worsen Follow-up/Referrals: Matt Vanegas MD [Primary Care Provider] - Diet: Regular Addtl Attending Provider Instructions: Medications: - XARELTO: 20mg a day, this is anticoagulation for stroke prevention, may notice that you bruise more easily - CARDIZEM: 120mg daily, take in the morning, this is to control your heart rate with atrial fibrillation New onset atrial fibrillation heart rates are controlled on Diltiazem drip, converted to 120mg tablet every morning will utilize Xarelto for anticoagulation echocardiogram shows that heart function is well preserved, normal left ventricular ejection fraction FOLLOW UP - call for appt with Dr. Vanegas in one week - call for appt with Dr. Amaya, cardiology, in 3-4 weeks, Pending Studies at Discharge: No Stand-Alone Forms: [facility] Medications and DC Order Prescriptions: New Xarelto 20 mg Tablet 20 mg PO QDD 30 Days Qty: 30 RF: 1 diltiazem HCl 120 mg Capsule,Extended Release 24hr 120 mg PO QAM 30 Days Qty: 30 RF: 3 Continued multivitamin Tablet 1 tab PO DAILY RF: 0 Discharge Orders: Discharge Order (Routine); Ordered 04/12/19 Ordered By: Ernie Díaz Admission Data Admit Date/Time: 04/11/19 12:54 Attending Provider: Ernie Díaz Admit Provider: Guanako Ribera Primary Care Provider: Matt Vanegas Other Providers: Ernie Díaz ; Darryl Amaya. Other Interventions: Discharge Summary Assessment (RN) Last Done: 04/12/19 11:32 DC Date/Time DO NOT enter until pt leaves facility: 04/12/19 12:35
[2019-04-13 06:40] LABS: Estimated Average Glucose 100 mg/dl; Hemoglobin A1C 5.1 % (4.5-5.6)
== END 2019-04-12 12:35 | disposition home or self-care (01) ==
LOC: ED 10:32 → 2S 10:32 → SUATTDRO 12:54 → 2S 13:27

== ENCOUNTER 2024-03-11 14:51 | Inpatient (IN) ==
--- NOTE | 2024-03-11 14:42 | Emergency Department Note ---
Impression & Plan Stroke-like symptoms, Atrial fibrillation ED Provider Note Provider: Markos Rubin MD DATE OF SERVICE: 03/11/2024 CHIEF COMPLAINT: Neurosymptoms, fall HISTORY OF PRESENT ILLNESS: Patient is a 78-year-old gentleman history of atrial fibrillation on Xarelto presenting today seen normal around 1:30 PM. Found by family in the floor slumped over by the computer and EMS was activated. Patient nonverbal with left gaze deviation and right-sided deficits noted per EMS report. Brought here for evaluation. Made a stroke alert and sent immediately to CT scan. Patient occasionally follows some commands and seems to spontaneously be using the left arm and leg and occasionally move the right foot. No memory of the right arm noted. Looks to the left and does not cross midline when talking or ask him to follow commands. Son and later arrived and states that the patient was found on his right side on the floor. Minimal fall off the chair for what they described. Normally takes his Xarelto medications in the morning of believe he took it this morning. Patient's right arm was tucked up and was little shaky there on scene. PAST MEDICAL HISTORY: As noted above MEDICATIONS: Reviewed and include Xarelto SOCIAL HISTORY: PHYSICAL EXAM: GENERAL: alert to verbal stimuli. Looking around on his left side Head: normocephalic and atraumatic EYES: No injection, discharge or icterus. PERRL, left gaze deviation NECK: Trachea midline. ENT: Mucous membranes pink and moist. LUNGS: Airway patent. No retractions. Breath sounds clear HEART: Regular rate and rhythm. No chest wall tenderness ABDOMEN: Soft and non-tender, without guarding or rebound. SKIN: Acyanotic, warm, dry, without rashes EXTREMITIES: Without swelling, tenderness or deformity NEUROLOGICAL: Left gaze deviation will not cross midline. Nonverbal occasionally said yes. Occasionally following commands. Spontaneously moving left arm and leg minimally moving the right foot. No movement of the right arm. Difficult to assess if sensations intact. EK bpm atrial fibrillation with PVC. No clear acute ST segment elevation or depression with a QTc of 497. CONTINUOUS CARDIAC MONITORING: was ordered and showed a heart rate of 80s to 100s bpm in atrial fibrillation GCS 15. Patient's laboratory studies and imaging reviewed. Differential includes traumatic injury, SDH, CVA, infection, dehydration, metabolic abnormality, hypo/hyperglycemia, electrolyte disturbance, anemia, hypoxia, cardiac sources, neurologic, as well as other pathologies. IMPRESSION/MEDICAL DECISION MAKING: Patient immediately assessed in the hallway and taken to CT scan. He is protecting his airway and ABCs seem intact. Patient without any external signs of trauma. Seems to be not be moving his right arm and basically nonverbal. I did get him to say yes or no but I am unsure if he was truly answering any questions. Diastolic blood pressure elevated but systolic not extraordinarily high. CT of the head and CT angiograms of head and neck as well as CT of the cervical spine obtained to look for any bleeding/traumatic injury or vascular injury. Confirmed with family that he is on Xarelto and they believe he took it this morning and thus thrombolytics are contraindicated. Discussed with telestroke from [facility]. Angiograms completed to look for LVO. Does not seem like true seizure activity. Basic blood work and blood sugar obtained here without any severe abnormalities. Seems to be a sudden change and I doubt meningitis or infection. Discussion with her telestroke no acute intervention given lack of LVO on radiology reports of the CT angiograms. Discussed with patient and at bedside. Will bring in for further neurological evaluation. Telestroke recommended holding Xarelto and starting aspirin, when able MRI of the brain. Patient and updated at bedside. Hospitalist team contacted for admission and further neurological workup. Patient appears to be in rate controlled A-fib at this time. DIAGNOSIS: Strokelike symptoms, atrial fibrillation DISPOSITION: Hospitalist will evaluate Patient was agreeable with this plan. Past Med/Surg History Problem List (Updated 03/11/24 @ 17:02 by Markos Rubin M.D.) Stroke-like symptoms (Acute) History of colon polyps Atrial fibrillation (Acute) Screening for prostate cancer Encounter for health maintenance examination Osteoarthritis of left knee Osteoarthritis of left shoulder Atrial fibrillation with rapid ventricular response (Acute) Surgical History S/P tonsillectomy S/P vasectomy S/P shoulder surgery Family History Mother Alzheimer disease Father Alzheimer disease Aunt Breast cancer Grandfather (Paternal) Myocardial infarction Other Family history non-contributory Denies family history of Ovarian cancer Prostate cancer Colorectal cancer Social History Smoking Status: Former smoker Second Hand Exposure: Yes (Vists the [employer] most afternoons); Do You Dip or Chew Tobacco: No; Hx Alcohol Use: Yes Alcohol type: beer Hx Substance Use: No Preferred Language: Croatian Communication Ability: Effective Tool Die Maker Required: No Beliefs That Will Affect Care: None marital status: Current Living Situation: Spouse current occupational status: retired current occupation: [employer] How many Children do You have: 2 How many Children do You have Comment: girl, boy Feels Safe at Home: Yes Childhood Exposure to Second-Hand Smoke: Yes Diet: regular Diet Comment: everything in moderation caffeine: Yes Dental Care, Regularly: Yes Physical Activity Frequency: Daily Physical Activity Frequency Comment: weight training Seatbelt Use: always Sunscreen Use: Yes Do you think of yourself as: straight/heterosexual Gender Identity: Male Assistive Devices: Glasses Allergies Allergies Allergy/AdvReac Type Severity Reaction Status Date / Time No Known Drug Allergies Allergy Verified 03/11/24 15:51 Home Meds Home Medications Medication Instructions Recorded Confirmed multivitamin 1 tab PO DAILY 04/11/19 03/11/24 diltiazem HCl 120 mg See Rx Instructions .Route .COMPLEX 03/11/24 03/11/24 capsule,extended release 24 hr Previous Rx's Medication Instructions Recorded rivaroxaban 20 mg tablet (Xarelto) 20 mg PO QDD 30 days #90 tabs 08/26/23 trazodone 100 mg tablet 100 mg PO DAILY #30 tabs 12/13/23 Results & Data (ED) Vital Signs Vital Signs - 24 hr 03/11/24 15:23 03/11/24 15:29 03/11/24 15:40 Temperature 37.0 C Temperature Source Oral Pulse Rate 99 H 93 H Pulse Rate [Apical] Respiratory Rate 22 Respiratory Effort / Characteristics Non-Labored Spontaneous Respiratory Depth Normal Blood Pressure 147/98 H Blood Pressure [Left Arm] Blood Pressure Mean 114 Blood Pressure Mean [Left Arm] Blood Pressure Position Semi-fowlers Blood Pressure Position [Left Arm] Pulse Oximetry 94 96 Oxygen Delivery Method Room Air Room Air Sepsis Recent Fever Within 48 Hours No Sepsis New/Unexplained Change in Mental Status N/A Sepsis Action Taken by Nursing No Action Required 03/11/24 16:02 Temperature Temperature Source Pulse Rate Pulse Rate [Apical] 94 H Respiratory Rate 18 Respiratory Effort / Characteristics Non-Labored Spontaneous Respiratory Depth Normal Blood Pressure Blood Pressure [Left Arm] 113/78 Blood Pressure Mean Blood Pressure Mean [Left Arm] 89 Blood Pressure Position Blood Pressure Position [Left Arm] Semi-fowlers Pulse Oximetry 91 Oxygen Delivery Method Room Air Sepsis Recent Fever Within 48 Hours Sepsis New/Unexplained Change in Mental Status Sepsis Action Taken by Nursing Laboratory Data 03/11/24 15:06 03/11/24 15:06 Lab Results 03/11/24 03/11/24 03/11/24 Range/Units 15:06 15:07 15:10 WBC 7.61 (4.8-10.8) K/ul RBC 3.98 L (4.70-6.10) M/uL Hgb 13.3 L (14.0-18.0) g/dl POC Hgb 12.9 L (14.0-18.0) g/dl Hct 36.2 L (42.0-52.0) % POC Hct 38 L (42-52) % MCV 91.0 (80.0-100.0) fL MCH 33.4 (25.0-34.0) pg MCHC 36.7 H (32.0-36.0) g/dL RDW Std Deviation 40.2 (36.4-46.3) fL RDW Coeff of Brandon 12.1 (11.5-14.5) % Plt Count 164 (130-400) K/uL MPV 8.7 L (9.4-12.4) fL Immature Gran % (Auto) 0.4 % Neut % (Auto) 74.3 % Lymph % (Auto) 17.0 % Garrard % (Auto) 6.4 % Eos % (Auto) 1.4 % Baso % (Auto) 0.5 % Neut # (Auto) 5.65 (1.40-6.50) K/uL Lymph # (Auto) 1.29 (1.20-3.40) K/uL Garrard # (Auto) 0.49 (0.11-0.59) K/uL Eos # (Auto) 0.11 (0.00-0.50) K/uL Baso # (Auto) 0.04 (0.00-0.20) K/uL Immature Gran # (Auto) 0.03 (0.01-0.20) K/uL PT 11.6 (9.0-12.0) Seconds INR 1.1 (0.9-1.1) APTT 26 (21-31) Seconds PTT Ratio 1.0 POC Sodium 136 (135-144) mmol/L Sodium 135 L (136-145) mmol/L POC Potassium 3.9 (3.3-5.0) mmol/L Potassium 3.9 (3.5-5.1) mmol/L POC Chloride 99 L (101-112) mmol/L Chloride 101 (98-107) mmol/L Carbon Dioxide 27 (21-32) mmol/L POC Total CO2 23 L (24-31) mmol/L Anion Gap 7 (3-11) POC Anion Gap 19.0 (16-25) mmol/L POC BUN 17 (7-18) mg/dl BUN 18 (6-23) mg/dl Creatinine 0.99 (0.6-1.4) mg/dl POC Creatinine 1.0 (0.6-1.3) mg/dl Est Cr Clr Drug Dosing 65.5 ml/min Est GFR ( Amer) 84.2 ml/min Est GFR (Non-Af Amer) 72.6 ml/min BUN/Creatinine Ratio 18.2 (10-20) Glucose 124 H (70-99(Fasting)) mg/dl POC Glucose 135 H (70-99) mg/dl POC Glucose (other) 126 H (70-99) mg/dl Lactate 1.3 (0.4-2.0) mmol/L Calcium 8.8 (8.6-10.3) mg/dl POC Ioniz Calcium Kris 1.15 (1.12-1.32) mmol/l Magnesium 2.1 (1.7-2.4) mg/dl Total Bilirubin 0.9 (0.2-1.0) mg/dl AST 23 (13-39) U/L ALT 16 (7-52) U/L Alkaline Phosphatase 49 (34-104) U/L Troponin I High Sens 24.7 H (0-20) pg/ml Total Protein 7.0 (6.0-8.3) gm/dl Albumin 4.2 (3.4-5.0) gm/dl Globulin 2.8 (2.5-4.0) gm/dl Albumin/Globulin Ratio 1.5 (0.9-2) Administered Medications Discontinued Medications Ioversol (Optiray 320 125ml) 116 ml IV ONCE ONE Stop: 03/11/24 15:06 Last Admin: 03/11/24 15:05 Dose: 116 ml Documented By: CHARLY Imaging Data Radiologist's Impression: Cervical Spine CT 03/11/24 14:36 CT cervical spine wo con CLINICAL HISTORY: 78 years-old Male with fall, ams. Acute neck pain status post fall COMPARISON: CTA neck of same day. TECHNIQUE: Multiple axial CT images of the cervical spine were obtained without contrast. A dose lowering technique was utilized adhering to the principles of ALARA. FINDINGS: Multilevel degenerative changes include severe disc space narrowing at C5-C6 and C6/C7. Moderate severe spondylitic spurring at these levels with posterior disc osteophyte complex formations. Moderate to severe multilevel facet arthrosis. Degenerative partial bony fusion at C2-C3. No acute cervical spine fracture or subluxation identified. The cervical soft tissues appear unremarkable. No pneumothorax. Intralobular septal thickening of the lung apices. IMPRESSION: No acute cervical spine fracture or subluxation identified. ACT 112: Negative or not required by law. The above report was generated using voice recognition software. It may contain grammatical, syntax or spelling errors. Electronically signed by: Deni Mcclelland M.D. 03/11/2024 3:[address] 03/11/24 14:36 CT angio head w con, CT head/brain wo con CLINICAL HISTORY: neuro deficit, acute stroke, fall, xarelto TECHNIQUE: Contiguous axial CT images of the head were acquired from the base of the skull to the vertex without intravenous contrast administration. CT angiography of the head was performed following intravenous administration of iodinated contrast. Coronal and sagittal MIPS were obtained from the axial data set and were submitted for review. Automated dose lowering techniques and/or adjustment according to patient size were utilized for this examination. All measurements were calculated based on NASCET criteria. Comparison: None available at the time of this dictation. FINDINGS: CT head: Areas of decreased attenuation are present in the periventricular and subcortical white matter bilaterally consistent with small vessel ischemic disease. Generalized cerebral atrophy with commensurate enlargement of the ventricles, sulci, and cisterns is also present. There is no acute intracranial hemorrhage or evidence of acute territorial infarction. No shift of the midline structures, mass effect, or extra-axial abnormalities are shown. Atherosclerotic calcifications are present in the intracranial segments of the internal carotid arteries. Encephalomalacia in the left basal ganglia likely represents lacunar infarct. Metallic bodies are seen in the left temporal soft tissues. CTA Head: The anterior and posterior cerebral circulations are patent. origin of the right posterior cerebral artery is seen. IMPRESSION: 1. Encephalomalacia in the left basal ganglia may represent a lacunar infarct of uncertain chronicity. 2. No occlusion, hemodynamically significant stenosis, aneurysm, dissection, or arteriovenous malformation in the major intracranial arteries. Assessment of stenosis of the internal carotid arteries is based on NASCET criteria. ACT 112: Negative or not required by law. Electronically signed by: Ernie Nieves M.D. 03/11/2024 3:21 PM Head CTA 03/11/24 14:36 CT angio head w con, CT head/brain wo con CLINICAL HISTORY: neuro deficit, acute stroke, fall, xarelto TECHNIQUE: Contiguous axial CT images of the head were acquired from the base of the skull to the vertex without intravenous contrast administration. CT angiography of the head was performed following intravenous administration of iodinated contrast. Coronal and sagittal MIPS were obtained from the axial data set and were submitted for review. Automated dose lowering techniques and/or adjustment according to patient size were utilized for this examination. All measurements were calculated based on NASCET criteria. Comparison: None available at the time of this dictation. FINDINGS: CT head: Areas of decreased attenuation are present in the periventricular and subcortical white matter bilaterally consistent with small vessel ischemic disease. Generalized cerebral atrophy with commensurate enlargement of the ventricles, sulci, and cisterns is also present. There is no acute intracranial hemorrhage or evidence of acute territorial infarction. No shift of the midline structures, mass effect, or extra-axial abnormalities are shown. Atherosclerotic calcifications are present in the intracranial segments of the internal carotid arteries. Encephalomalacia in the left basal ganglia likely represents lacunar infarct. Metallic bodies are seen in the left temporal soft tissues. CTA Head: The anterior and posterior cerebral circulations are patent. origin of the right posterior cerebral artery is seen. IMPRESSION: 1. Encephalomalacia in the left basal ganglia may represent a lacunar infarct of uncertain chronicity. 2. No occlusion, hemodynamically significant stenosis, aneurysm, dissection, or arteriovenous malformation in the major intracranial arteries. Assessment of stenosis of the internal carotid arteries is based on NASCET criteria. ACT 112: Negative or not required by law. Electronically signed by: Ernie Nieves M.D. 03/11/2024 3:21 PM Neck CTA 03/11/24 14:36 CT ANGIOGRAM OF THE NECK CLINICAL HISTORY: Neurological deficit. Stroke like symptoms. COMPARISON STUDY: No priors. TECHNIQUE: Following the IV administration of 116 of Optiray 320, CT angiogram of the neck was performed from the aortic arch to the skull base. Images are reviewed in the axial, sagittal, and coronal planes. 3-D MIPS images are created and assessed. IV contrast was administered without complication. All measurements were calculated based on NASCET criteria. A dose lowering technique was utilized adhering to the principles of ALARA. CT DOSE: 2128.59 mGy.cm FINDINGS: Thoracic aorta: There is atherosclerotic calcification of the thoracic aorta. Visualized portions of the thoracic aorta are normal in caliber. The aortic arch demonstrates standard 3-vessel anatomy. Right carotid arterial system: The right common carotid artery is widely patent, as are the right internal and external carotid arteries. Left carotid arterial system: The left common carotid artery is widely patent, as are the left internal and external carotid arteries. Vertebral arteries: The vertebral arteries are widely patent bilaterally noting right-sided dominance. Subclavian arteries: Widely patent bilaterally. Intracranial vasculature: The visualized intracranial vessels at the skull base are patent. Jugular veins: Patent bilaterally. Brain parenchyma: The visualized brain parenchyma the skull base is within normal limits. Lung apices: Partially visualized upper lobe lung parenchyma appears clear. Soft tissues: The visualized pharyngeal soft tissues are normal in appearance noting angiographic phase technique. The oropharyngeal airway appears widely patent. The salivary and thyroid glands are normal in appearance. No cervical lymphadenopathy is seen. Skeletal structures: The skeletal structures are osteopenic. The visualized calvarium at the skull base appears intact. The imaged cervical spine is within normal limits. Sinuses and mastoids: There is moderate mucosal thickening within the ethmoid sinuses. The mastoid air cells are well pneumatized. IMPRESSION: Unremarkable CT angiogram of the neck. ACT 112: Negative or not required by law. Electronically signed by: Abram Cao M.D. 03/11/2024 3:26 PM Discharge Plan Visit Data Chief Complaint: Stroke Alert Stated Complaint: STROKE ALERT ED Provider: Markos Rubin Discharge Problem: Stroke-like symptoms, Atrial fibrillation Patient Disposition: Being Evaluated by Hospitalist Forms Stand Alone Forms: My [facility] [place] Prescriptions Prescriptions: No Action Xarelto 20 mg tablet 20 mg PO QDD 30 Days Qty: 90 3RF trazodone 100 mg tablet 100 mg PO DAILY Qty: 30 2RF multivitamin Tablet 1 tab PO DAILY Rx Instructions: Unable to verify OTC meds at this date/time. diltiazem HCl 120 mg capsule,extended release 24hr See Rx Instructions .ROUTE .COMPLEX Rx Instructions: Pharmacy shows 120mg by mouth three times daily. However, was last verified by MD as 120mg once daily. Per pharmacy pt may have changed how he is taking medication and didn't inform them. Referrals Referrals: Pro,Matt Robledo MD [Primary Care Provider] -
[2024-03-11] MEDS: OPTIRAY 320 125ml IV ONE (15:05)
[2024-03-11 15:19] LABS: Basophils # (auto) 0.04 K/uL (0.00-0.20); Basophils % (auto) 0.5 %; Eosinophils # (auto) 0.11 K/uL (0.00-0.50); Eosinophils % (auto) 1.4 %; Hematocrit (blood only) 36.2 % (42.0-52.0); Hemoglobin 13.3 g/dl (14.0-18.0); Immature Granulocytes # (auto) 0.03 K/uL (0.01-0.20); Immature Granulocytes % (auto) 0.4 %; Lymphocytes # (auto) 1.29 K/uL (1.20-3.40); Mean Corpuscular Hemoglobin 33.4 pg (25.0-34.0); Mean Corpuscular Hgb Conc 36.7 g/dL (32.0-36.0); Mean Platelet Volume 8.7 fL (9.4-12.4); Monocytes # (auto) 0.49 K/uL (0.11-0.59); Monocytes % (auto) 6.4 %; Neutrophils # (auto) 5.65 K/uL (1.40-6.50); Neutrophils % (auto) 74.3 %; Platelet Count 164 K/uL (130-400); RDW Coefficient of Variation 12.1 % (11.5-14.5); RDW Standard Deviation 40.2 fL (36.4-46.3); Red Blood Count 3.98 M/uL (4.70-6.10); White Blood Count 7.61 K/ul (4.8-10.8)
[2024-03-11 15:22] LABS: iSTAT Hemoglobin 12.9 g/dl (14.0-18.0); iSTAT Ionized Calcium 1.15 mmol/l (1.12-1.32); iSTAT Potassium 3.9 mmol/L (3.3-5.0)
--- NOTE | 2024-03-11 15:22 | CT Scan Report ---
CT angio head w con, CT head/brain wo con CLINICAL HISTORY: neuro deficit, acute stroke, fall, xarelto TECHNIQUE: Contiguous axial CT images of the head were acquired from the base of the skull to the best damaris without intravenous contrast administration. CT angiography of the head was performed following intravenous administration of iodinated contrast. Coronal and sagittal MIPS were obtained from the ax ial data set and were submitted for review. Automated dose lowering techniques and/or adjustment acc ording to patient size were utilized for this examination. All measurements were calculated based on NASCET criteria. Comparison: None available at the time of this dictation. FINDINGS: CT head: Areas of decreased attenuation are present in the periventricular and subcortical white yane er bilaterally consistent with small vessel ischemic disease. Generalized cerebral atrophy with comme nsurate enlargement of the ventricles, sulci, and cisterns is also present. There is no acute intracr anial hemorrhage or evidence of acute territorial infarction. No shift of the midline structures, mas s effect, or extra-axial abnormalities are shown. Atherosclerotic calcifications are present in the intracranial segments of the internal carotid arteries. Encephalomalacia in the left basal ganglia li rajendra represents lacunar infarct. Metallic bodies are seen in the left temporal soft tissues. CTA Head: The anterior and posterior cerebral circulations are patent. origin of the right pos terior cerebral artery is seen. IMPRESSION: 1. Encephalomalacia in the left basal ganglia may represent a lacunar infarct of uncertain chronicit y. 2. No occlusion, hemodynamically significant stenosis, aneurysm, dissection, or arteriovenous malfor mation in the major intracranial arteries. Assessment of stenosis of the internal carotid arteries is based on NASCET criteria. ACT 112: Negative or not required by law. Electronically signed by: Ernie Nieves M.D. 03/11/2024 3:21 PM
--- NOTE | 2024-03-11 15:28 | CT Scan Report ---
CT ANGIOGRAM OF THE NECK CLINICAL HISTORY: Neurological deficit. Stroke like symptoms. COMPARISON STUDY: No priors. TECHNIQUE: Following the IV administration of 116 of Optiray 320, CT angiogram of the neck was perfor med from the aortic arch to the skull base. Images are reviewed in the axial, sagittal, and coronal p lanes. 3-D MIPS images are created and assessed. IV contrast was administered without complication. A ll measurements were calculated based on NASCET criteria. A dose lowering technique was utilized adh ering to the principles of ALARA. CT DOSE: 2128.59 mGy.cm FINDINGS: Thoracic aorta: There is atherosclerotic calcification of the thoracic aorta. Visualized portions of the thoracic aorta are normal in caliber. The aortic arch demonstrates standard 3-vessel anatomy. Right carotid arterial system: The right common carotid artery is widely patent, as are the right int ernal and external carotid arteries. Left carotid arterial system: The left common carotid artery is widely patent, as are the left internal affairs commander al and external carotid arteries. Vertebral arteries: The vertebral arteries are widely patent bilaterally noting right-sided dominance . Subclavian arteries: Widely patent bilaterally. Intracranial vasculature: The visualized intracranial vessels at the skull base are patent. Jugular veins: Patent bilaterally. Brain parenchyma: The visualized brain parenchyma the skull base is within normal limits. Lung apices: Partially visualized upper lobe lung parenchyma appears clear. Soft tissues: The visualized pharyngeal soft tissues are normal in appearance noting angiographic pha se technique. The oropharyngeal airway appears widely patent. The salivary and thyroid glands are nor mal in appearance. No cervical lymphadenopathy is seen. Skeletal structures: The skeletal structures are osteopenic. The visualized calvarium at the skull ba se appears intact. The imaged cervical spine is within normal limits. Sinuses and mastoids: There is moderate mucosal thickening within the ethmoid sinuses. The mastoid ai r cells are well pneumatized. IMPRESSION: Unremarkable CT angiogram of the neck. ACT 112: Negative or not required by law. Electronically signed by: Abram Cao M.D. 03/11/2024 3:26 PM
[2024-03-11 15:29] LABS: INR 1.1 (0.9-1.1); Partial Thromboplastin Time 26 Seconds (21-31); Prothrombin Time 11.6 Seconds (9.0-12.0)
--- NOTE | 2024-03-11 15:39 | CT Scan Report ---
CT cervical spine wo con CLINICAL HISTORY: 78 years-old Male with fall, ams. Acute neck pain status post fall COMPARISON: CTA neck of same day. TECHNIQUE: Multiple axial CT images of the cervical spine were obtained without contrast. A dose low ering technique was utilized adhering to the principles of ALARA. FINDINGS: Multilevel degenerative changes include severe disc space narrowing at C5-C6 and C6/C7. Mod erate severe spondylitic spurring at these levels with posterior disc osteophyte complex formations. Moderate to severe multilevel facet arthrosis. Degenerative partial bony fusion at C2-C3. No acute ce rvical spine fracture or subluxation identified. The cervical soft tissues appear unremarkable. No p neumothorax. Intralobular septal thickening of the lung apices. IMPRESSION: No acute cervical spine fracture or subluxation identified. ACT 112: Negative or not required by law. The above report was generated using voice recognition software. It may contain grammatical, syntax o r spelling errors. Electronically signed by: Deni Mcclelland M.D. 03/11/2024 3:36 PM
[2024-03-11 15:42] LABS: Albumin Globulin Ratio 1.5 (0.9-2); Albumin Level 4.2 gm/dl (3.4-5.0); BUN Creatinine Ratio 18.2 (10-20); Bilirubin,Total 0.9 mg/dl (0.2-1.0); Calcium 8.8 mg/dl (8.6-10.3); Creatinine Clr Calc Pharmacy 65.5 ml/min; Est GFR (African American) 84.2 ml/min; Est GFR (Non-African American) 72.6 ml/min; Globulin 2.8 gm/dl (2.5-4.0); Magnesium 2.1 mg/dl (1.7-2.4); Potassium 3.9 mmol/L (3.5-5.1)
[2024-03-11 15:48] LABS: Troponin I High Sensitivity 24.7 pg/ml (0-20)
--- NOTE | 2024-03-11 16:01 | History & Physical Report ---
Date of Service March 11, 2024 Assessment & Plan (1) Stroke-like symptoms: Plan: - right sided flaccidity and nonverbal on admission, responded to commands - CTA showed encephalomalacia in the left basal ganglia that may represent a lacunar infarct - telestroke recommended to hold Xarelto - NPO, speech consulted - Keep HOB at 30 degrees - Avoid Systolic BP less than 110 and diastolic BP less than 60 - Q2H neuro checks - MRI, echo, lipid panel, A1C, and neuro consult ordered (2) Atrial fibrillation: Plan: - History of A fib on Xarelto and diltiazem, held at this time - EKG on admission showed a fib - continue to monitor on telemetry Plan VTE ppx: SCDs Diet: NPO Code status: DNR/DNI Admission and Anticipated Discharge Date Admission Date: 03/11/2024 History of Present Illness Chief Complaint: Stroke like symptoms Primary Care Provider: Matt Vanegas MD Patient is a 78 year old male with a history of A fib on Xarelto and osteoarthritis. The following history was taken by the patient's at bedside due to the patient being nonverbal. As per the patient's , at about 1330 today the patient's found him on the floor unresponsive. She stated that the patient's right side was not working and he was verbally unresponsive, so she called an ambulance. He has remained the same since admission. The patient currently can only respond with yes and the right side of his body is flaccid. He does not have any cognitive deficits at baseline and he has not had symptoms like this in the past. His stated that he has had ongoing dizziness for the past 2 months that gets worse with standing, along with daily dull headaches. He does not have any history of strokes, OR, DVT, PE, bleeding or clotting disorders, hypertension, hyperlipidemia, diabetes, COPD, cancer. He does not use any oxygen at home. The patient's states that he has a living will and wishes to be DNR/DNI. Allergies Allergy/AdvReac Type Severity Reaction Status Date / Time No Known Drug Allergies Allergy Verified 03/11/24 15:51 Home Medications Medication Instructions Recorded Confirmed Type multivitamin 1 tab PO DAILY 04/11/19 03/11/24 History rivaroxaban 20 mg tablet (Xarelto) 20 mg PO QDD 30 days #90 tabs 08/26/23 03/11/24 Rx trazodone 100 mg tablet 100 mg PO DAILY #30 tabs 12/13/23 03/11/24 Rx diltiazem HCl 120 mg See Rx Instructions .Route .COMPLEX 03/11/24 03/11/24 History capsule,extended release 24 hr Past Med/Surg History Problem List (Updated 03/11/24 @ 17:02 by Markos Rubin M.D.) Stroke-like symptoms (Acute) History of colon polyps Atrial fibrillation (Acute) Screening for prostate cancer Encounter for health maintenance examination Osteoarthritis of left knee Osteoarthritis of left shoulder Atrial fibrillation with rapid ventricular response (Acute) Surgical History S/P tonsillectomy S/P vasectomy S/P shoulder surgery Family History Mother Alzheimer disease Father Alzheimer disease Aunt Breast cancer Grandfather (Paternal) Myocardial infarction Other Family history non-contributory Denies family history of Ovarian cancer Prostate cancer Colorectal cancer Social History Smoking Status: Never smoker Second Hand Exposure: No; Do You Dip or Chew Tobacco: No; Tobacco Cessation Education Requested by Patient: No Hx Alcohol Use: Yes Alcohol type: beer Hx Substance Use: No Preferred Language: Salvadorean Communication Ability: Effective Immigration Manager Required: No Beliefs That Will Affect Care: None marital status: Current Living Situation: Spouse current occupational status: retired current occupation: [employer] How many Children do You have: 2 How many Children do You have Comment: girl, boy Other Information That Helps Us Care for You: No Feels Safe at Home: Yes Safety Concerns: Feels Safe At This Time Childhood Exposure to Second-Hand Smoke: Yes Diet: regular Diet Comment: everything in moderation caffeine: Yes Dental Care, Regularly: Yes Physical Activity Frequency: Daily Physical Activity Frequency Comment: weight training Seatbelt Use: always Sunscreen Use: Yes Do you think of yourself as: straight/heterosexual Gender Identity: Male Assistive Devices: None Review of Systems Review of Systems: See HPI Physical Exam Physical Exam: The patient is awake, nonverbal, well developed and well nourished, normocephalic and atraumatic, lying in bed and in no acute distress. Non-toxic appearing. HEENT- PERRL, EOMI, mucous membranes dry. Hearing grossly intact. Heart- Irregularly irregular rhythm. normal S1 and S2. No murmurs, rubs or gallops. Lungs-clear bilaterally, no respiratory distress, no accessory muscle use. Abdomen-normal bowel sounds and soft. No ascites noted. Non-tender. Extremities-no cyanosis or clubbing. No edema. Dermatologic-normal skin turgor, normal color, no abnormal lymph nodes, no rash. Neurologic- nonverbal, right sided facial droop, right ride flaccidity. Left side movements normal, responded to commands. Results & Data Results & Data Vital Signs (Past 12 Hours) Vital Signs Temp Pulse Resp BP Pulse Ox O2 Del Method 03/11/24 15:40 96 Room Air 03/11/24 15:29 37.0 C 93 H 22 147/98 H 94 Room Air 03/11/24 15:23 99 H Code Status & VTE Plan Code Status DNR/DNI VTE Prophylaxis Plan VTE Prophylaxis will be ordered: Yes Supervising Physician Co-Signing Physician Notes I personally saw and examined the patient. I independently reviewed the labs, EKG, imaging, problem list, medication list, past medical history and family history. I verified all maza points and agree with Noreen Iyer PA-C with the following exceptions and/or additions: 78 year old male presents to the ER with right sided weakness and loss of s peech. Last known normal 1:30 pm. Found slumped over his computer and EMS called. No history of stroke O/E Alert but not saying any words, HS regular rate, irregular rhythm, Chest CTAB, Abdo SNT, PERRL, no facial droop, difficult neurological exam as only occasionally following one step commands, right side is completely flaccid, moving left upper and lower extremity although having difficulty A/P Acute CVA - suspect from kalli espinoza, reportedly took Xarelto this morning therefore not TNK candidate. Given size of stroke would hold off prescribing anticoagulation tomorrow until reviewed by neurology. Aspiration risk and will keep NPO with IV fluids Kalli espinoza - currently rate controlled and reportedly took his diltiazem this morning. No need for rate control at the present time but may need to introduce diltiazem IV drip tomorrow being cautious not to drop his BP. PG Care Time/CCT Total # of Minutes Spent Total Time Spent with Patient: Total time spent is greater than 50% in coordination of care (as documented) at patient's floor/unit and/or counseling patient: Coding Level of Care Code None Diagnoses Stroke-like symptoms R29.90 Atrial fibrillation I48.91
[2024-03-11] MEDS ORDERED: PHARMACIST DISCHARGE MED REC CONSULT PRN (16:11)
--- NOTE | 2024-03-11 17:34 | Magnetic Resonance Report ---
MR brain wo con HISTORY: 78 years-old Male Stroke like symptoms acute stroke like symptoms COMPARISON: Head CT of same day TECHNIQUE: Multiplanar multisequence MRI brain was obtained without IV contrast. FINDINGS: Prominent perivascular spaces correlate with the questionable abnormality on the same day head CT. Th ere are at least 5 foci of restricted diffusion within the left frontal lobe with foci within the ant erior cerebral arterial circulation measuring up to 2 cm on image 14 series 4. Left MCA distribution focus measures 1.7 cm on image 13 series 4. These areas demonstrate decreased signal on the ADC map. Involutional changes with mild to moderate T2/FLAIR hyperintense foci throughout the white matter sug gestive of chronic microvascular ischemic disease. Midline structures appear unremarkable. Partially empty sella. Degenerative changes of the spine. No acute intracranial hemorrhage, midline shift, abnormal extra-axial collection, hydrocephalus or intra -axial mass. Cerebral venous sinuses and major arterial flow voids appear patent. Skull, orbits and s oft tissues are unremarkable. Mild mucosal thickening of the paranasal sinuses. Mastoid air cells are clear. IMPRESSION: 1. There are several acute infarcts in the left frontal lobe involving the anterior cerebral and wate rshed distributions measuring up to 2 cm. 2. No acute intracranial hemorrhage, midline shift or hydrocephalus. 3. Involutional changes with chronic microvascular ischemic disease. ACT 112: Negative or not required by law. The above report was generated using voice recognition software. It may contain grammatical, syntax o r spelling errors. Electronically signed by: Deni Mcclelland M.D. 03/11/2024 5:31 PM
[2024-03-11 20:33] LABS: Appearance Urine Clear (Clear); Bacteria Urine Automated None Seen (None Seen); Bilirubin Urine Negative (Negative); Blood Urine Negative (Negative); Cast Urine Automated 0-2 /lpf (0-2); Color Urine Yellow; Epithelial Cell Urine Auto 0-2 /hpf (0-2); Glucose Urine UA Negative (Negative); Ketones Urine Negative (Negative); Leukocyte Esterase Urine Negative (Negative); Nitrite Urine Negative (Negative); Protein Urine 1+ (Negative); RBC Urine Automated 0-2 /hpf (0-2); Specific Gravity Urine 1.045 (1.000-1.030); Urobilinogen Urine Negative (Negative); WBC Urine Automated 0-5 /hpf (0-5)
[2024-03-11] MEDS: LACTATED RINGER'S 1,000 ML IV SCH (20:56)
--- NOTE | 2024-03-11 22:33 | Billing Data ---
Date of Service March 11, 2024 Coding Level of Care Code 80341 INT INP/OBS CARE
[2024-03-12] MEDS: FUROSEMIDE INJ 20 MG/2 ML VIAL IV ONE ×2 (05:16→15:03)
[2024-03-12 06:05] LABS: Base Excess VBG 0.5 mEq/L; HCO3 VBG 26 mmol/L; Oxygen Saturation VBG < 60.0 %; PCO2 VBG 44 mmHg (38-50); PO2 VBG 32 mmHg; pH VBG 7.38 (7.36-7.41)
[2024-03-12 06:33] LABS: BUN Creatinine Ratio 16.3 (10-20); Calcium 9.4 mg/dl (8.6-10.3); Chol HDL Ratio 2.8 (0-5); Est GFR (Non-African American) 79.4 ml/min; Potassium 4.2 mmol/L (3.5-5.1)
[2024-03-12 06:42] LABS: Troponin I High Sensitivity 45.4 pg/ml (0-20)
[2024-03-12] MEDS ORDERED: STAT IV Infusion **Titration per Protocol STA (07:32)
[2024-03-12 08:12] LABS: Estimated Average Glucose 114 mg/dl; Hemoglobin A1C 5.6 % (4.5-5.6)
--- NOTE | 2024-03-12 08:24 | XRay Report ---
XR chest 1V portable HISTORY: hypoxia COMPARISON: Chest 04/11/2019. FINDINGS: No pneumothorax. The heart is mildly enlarged. No acute fractures identified. There is miroslava hilar interstitial/vascular thickening which has progressed. This is consistent with mild pulmonary e angie. Suspect a small left pleural effusion. Left basilar densities are noted. Advanced degenerative changes within the shoulders, unchanged. IMPRESSION: 1. Interval development of mild interstitial pulmonary edema. 2. Suspect a small left pleural effusion. Left basilar densities are nonspecific but may represent toney bsegmental atelectasis. ACT 112: Negative or not required by law. Electronically signed by: Gaurang Cherry M.D. 03/12/2024 8:23 AM
[2024-03-12 08:26] LABS: Basophils # (auto) 0.05 K/uL (0.00-0.20); Basophils % (auto) 0.4 %; Eosinophils # (auto) 0.08 K/uL (0.00-0.50); Eosinophils % (auto) 0.6 %; Hematocrit (blood only) 45.9 % (42.0-52.0); Hemoglobin 16.5 g/dl (14.0-18.0); Immature Granulocytes # (auto) 0.05 K/uL (0.01-0.20); Immature Granulocytes % (auto) 0.4 %; Lymphocytes # (auto) 2.38 K/uL (1.20-3.40); Lymphocytes % (auto) 18.1 %; Mean Corpuscular Hemoglobin 33.1 pg (25.0-34.0); Mean Corpuscular Hgb Conc 35.9 g/dL (32.0-36.0); Mean Platelet Volume 8.9 fL (9.4-12.4); Monocytes # (auto) 0.89 K/uL (0.11-0.59); Monocytes % (auto) 6.8 %; Neutrophils # (auto) 9.73 K/uL (1.40-6.50); Neutrophils % (auto) 73.7 %; Platelet Count 223 K/uL (130-400); RDW Coefficient of Variation 12.4 % (11.5-14.5); Red Blood Count 4.99 M/uL (4.70-6.10); White Blood Count 13.18 K/ul (4.8-10.8)
[2024-03-12] MEDS: dilTIAZem HCl 5 MG/ML 5 ML VIAL IV STA (09:03)
[2024-03-12] MEDS: dilTIAZem HCL 125 MG in DEXTROSE 5% 100 ML IV SCH (09:11)
--- NOTE | 2024-03-12 10:48 | Electrocardiogram Report ---
Test Reason : Blood Pressure : */* mmHG Vent. Rate : 95 BPM Atrial Rate : * BPM P-R Int : * ms QRS Dur : 104 ms QT Int : 396 ms P-R-T Axes : * 54 114 degrees QTcB Int : 497 ms Atrial fibrillation with premature ventricular or aberrantly conducted complexes Minimal voltage criteria for LVH, may be normal variant Abnormal ECG When compared with ECG of 11-Apr-2019 10:43, Vent. rate has decreased by 52 bpm Incomplete right bundle branch block is no longer Present Criteria for Inferior infarct are no longer Present Confirmed by Robert Amaya ([id number]) on 03/12/2024 10:47:54 AM Referred By: Confirmed By: Robert Amaya
--- NOTE | 2024-03-12 10:57 | Neurology Consultation ---
Date of Consultation March 12, 2024 Assessment & Plan (1) Stroke: (2) Atrial fibrillation: Plan Probable cardioembolic stroke involving the left WENCESLAO/left MCA territory in the context of atrial fibrillation, on Xarelto. Patient has probably been compliant with Xarelto, although spouse not completely certain. Patient has a severe global aphasia and flaccid hemiplegia for the right upper limb. Strength for the right lower limb has been improving. CT angiography of the head and neck negative for stenotic or occlusive lesion, no dissection. There is no evidence of hemorrhage on initial CT of the head or follow-up brain MRI. Patient may restart anticoagulation. Consider switching from Xarelto to Eliquis if medically appropriate. Would recommend a follow-up noncontrast CT of the head this evening to further exclude hemorrhagic transformation, although risk probably low based on size and distribution of his infarcts. May allow for permissive hypertension acutely, systolic blood pressure 140 to 160 mmHg. Long-term blood pressure goal less than 130/90. Although patient does not appear to have significant atherosclerotic disease burden on CT angiography, lipid panel looks fairly good, and his stroke appears cardioembolic, would consider starting a low-dose statin, goal LDL 70 or less for secondary stroke risk reduction. Consider obtaining a transthoracic echocardiogram with bubble study. Consultations with PT/OT/speech therapy. May follow-up with myself or an VALDO in neurology clinic. Timing of follow-up appointment uncertain at this time, will likely require inpatient rehabilitation, consider 3 to 4 weeks. History of Present Illness Reason for Consultation: stroke Requesting Physician: Tom Attending Physician: Praneeth Blackburn MD History of Present Illness The patient is a 78-year-old male who presented to the emergency department yesterday after he was found on the floor by family unresponsive. He exhibited right-sided weakness, aphasia, and left gaze preference. The weakness involve the face arm and leg. He has a history of atrial fibrillation, on Xarelto, reportedly compliant with this medication, although spouse not completely sure. He has a significant mixed aphasia this morning and is unable to provide a reliable history. He perseverates on the word yes. A CT of the head was negative for hemorrhage or acute process. CTA of the head and neck were unremarkable. A brain MRI reveals several acute infarcts in the left frontal lobe involving the anterior cerebral and left MCA/watershed territory as well as chronic microvascular ischemic disease. I independently reviewed these images. There is no evidence of hemorrhage. Family is at bedside this morning, they do report some interval improvement in his weakness, able to move the right leg a bit more today, continues to have flaccid weakness for the right upper limb, however. Allergies Allergy/AdvReac Type Severity Reaction Status Date / Time No Known Drug Allergies Allergy Verified 03/11/24 15:51 Home Medications Medication Instructions Recorded Confirmed Type multivitamin 1 tab PO DAILY 04/11/19 03/11/24 History rivaroxaban 20 mg tablet (Xarelto) 20 mg PO QDD 30 days #90 tabs 08/26/23 03/11/24 Rx trazodone 100 mg tablet 100 mg PO DAILY #30 tabs 12/13/23 03/11/24 Rx diltiazem HCl 120 mg See Rx Instructions .Route .COMPLEX 03/11/24 03/11/24 History capsule,extended release 24 hr Patient History Surgical History S/P tonsillectomy S/P vasectomy S/P shoulder surgery Family History Mother Alzheimer disease Father Alzheimer disease Aunt Breast cancer Grandfather (Paternal) Myocardial infarction Other Family history non-contributory Denies family history of Ovarian cancer Prostate cancer Colorectal cancer Social History Smoking Status: Never smoker Second Hand Exposure: No; Do You Dip or Chew Tobacco: No; Tobacco Cessation Education Requested by Patient: No Hx Alcohol Use: Yes Alcohol type: beer Hx Substance Use: No Preferred Language: Urdu Communication Ability: Effective Casting Finisher Required: No Beliefs That Will Affect Care: None marital status: Current Living Situation: Spouse current occupational status: retired current occupation: [employer] How many Children do You have: 2 How many Children do You have Comment: girl, boy Other Information That Helps Us Care for You: No Feels Safe at Home: Yes Safety Concerns: Feels Safe At This Time Childhood Exposure to Second-Hand Smoke: Yes Diet: regular Diet Comment: everything in moderation caffeine: Yes Dental Care, Regularly: Yes Physical Activity Frequency: Daily Physical Activity Frequency Comment: weight training Seatbelt Use: always Sunscreen Use: Yes Do you think of yourself as: straight/heterosexual Gender Identity: Male Assistive Devices: None Review of Systems Review of Systems: Unobtainable due to cognitive status Exam (Neuro) Constitutional: well developed; no acute distress Eyes: normal visual mckenzie by confrontation, PERRL and EOM intact bilaterally ((The gaze deviation has resolved)); no nystagmus Neurologic: Cognitive Function: Recent Change Cortical Function: Neglect of Body Part Laterality: Left Attention: Span Intact Language: negative Naming Objects or Repeating Phrases Speech Fluency: negative Dysarthria Speech Aphasia: Aphasia and Anomia Cranial Nerves: Normal II, III, IV, , V, IX, X, XI and XII; Abnorm VII (Mild flattening of the right nasolabial fold) or VIII Motor Strength: Hemiplegia (Right upper limb 0/5, right lower limb 4/5) Laterality: Right Flaccidity: Arms Laterality: Right Muscle Bulk/Involuntary Movements: No Involuntary Movements; negative Muscle Atrophy Coordination: Finger-Nose Abnormal Laterality: Right and Heel-[place] Abnormal Laterality: Right Deep Tendon Reflexes: Rt Triceps: 1+, Lt Triceps: 1+, Rt Biceps: 1+, Lt Biceps: 1+, Rt Brachioradialis: 1+, Lt Brachioradialis: 1+, Rt Patellar: 1+, Lt Patellar: 2+, Rt Ankle: 1+ and Lt Ankle: 1+ Special Tests: Babinski Present (right) Results & Data Vital Signs (Past 12 Hours) Vital Signs Temp Pulse Pulse Resp BP Pulse Ox O2 Del Method 03/12/24 10:46 37.1 C 119 H 32 H 144/91 H 97 Nasal Cannula 03/12/24 07:12 36.8 C 128 H 32 H 103/77 96 Nasal Cannula 03/12/24 07:08 126 H 03/12/24 05:46 142 H 31 H 149/93 H 95 Nasal Cannula 03/12/24 05:41 36.8 C 144 H 44 H 137/100 97 Nasal Cannula 03/12/24 03:11 36.9 C 111 H 18 128/79 93 Room Air 03/11/24 23:23 36.6 C 75 18 134/96 94 Room Air O2 Flow Rate 03/12/24 10:46 3.0 03/12/24 07:12 3.0 03/12/24 07:08 03/12/24 05:46 3 03/12/24 05:41 3 03/12/24 03:11 03/11/24 23:23 Laboratory Results WBC 13.18, hemoglobin 16.5, hematocrit 45.9, platelet count 223, sodium 138, potassium 4.2, BUN 15, creatinine 0.92, glucose 118, hemoglobin A1c 5.6, calcium 9.4, magnesium 2.1, AST 23, ALT 16, troponin 45.4, triglycerides 87, cholesterol 196, LDL 110, VLDL 17, HDL 69, TSH 1.901 Electrocardiogram reveals atrial fibrillation with PVCs Coding Level of Care Code 87087 INT INP/OBS CARE MIN Diagnoses Stroke I63.9 Atrial fibrillation I48.91 Time Spent (min) 90 Comment Total time includes patient contact, chart review, counseling, note preparation
--- NOTE | 2024-03-12 11:24 | XCELERA ---
[id number] \\[id number]
[2024-03-12] MEDS: ASPIRIN 81 MG ECTAB PO SCH (12:56)
--- NOTE | 2024-03-12 13:48 | Pharmacy Report ---
- Date of Service March 12, 2024 - Pharmacy CVA/TIA Medication Review Medications to Prevent Stroke handout has been added to the patients discharge packet. Antiplatelet(s) * Aspirin 81 mg PO daily Cholesterol * High intensity statin: Atorvastatin 40 mg daily started DVT Prophylaxis * SCD knee Therapeutic Anticoagulation * Hx Afib/Aflutter noted, and patient is currently receiving Eliquis 5 mg PO BID Type 2 Diabetes * Patient does not have T2DM
--- NOTE | 2024-03-12 14:06 | Hospitalist Progress Note ---
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 This apparently occurred while on Xarelto but family states that he may not have been taking his Xarelto appropriately. Nevertheless, Xarelto has been switched to Eliquis and he is now on aspirin and a atorvastatin. Neurology consultation and recommendations appreciated. OT, PT, speech therapies ordered. He will likely need rehab at the time of hospital discharge (2) Atrial fibrillation: Plan: Rapid ventricular rate noted. Cardizem drip has been started. Telemetry. Cardiology consultation. (3) Acute systolic CHF (congestive heart failure): Plan: Pulmonary edema noted on chest x-ray. Will control atrial fibrillation and see if the CHF resolves. Holding off on parenteral Lasix for the time being to prevent hypotension. (4) Acute respiratory failure with hypoxia: Plan: Supplemental oxygen per nasal cannula to maintain saturation greater than 90%. Wean off as tolerated Plan He will eventually need IPR placement for rehab after his CVA. Admission and Anticipated Discharge Date Admission Date: March 11, 2024 Subjective Awake and alert. No acute distress. is at the bedside. Brain MRI scan reveals multiple left frontal CVA that appear to be embolic. Cardiac echo negative for thrombus in the left ventricle. This may be atherosclerotic emboli. Speech therapy is ordered a diet. Xarelto has been switched to Eliquis. Aspirin and atorvastatin added. He is now on a diltiazem drip for atrial fibrillation with rapid ventricular rate. Chest x-ray reveals mild edema but this may be related to the uncontrolled atrial fibrillation and hopefully will resolve with rate control. Cardiac echo reveals severe global left ventricular hypokinesis with ejection fraction of 15%. Moderate left atrial enlargement. Moderately severe mitral regurgitation. No left ventricular thrombus seen. Cardiology consultation ordered and pending. The patient is aphasic with severe right hemiparesis. Neurology consultation and recommendations appreciated Review of Systems 2 Review of Systems: Constitutionalno fever or chills ENTno blurred vision, no double vision, no epistaxis, no sore throat Respiratoryno cough, no wheezing, no shortness of breath Cardiacno palpitations, no chest pain, no syncope Olivier nausea, vomiting, diarrhea, melena, hematochezia GUno urinary retention, no urinary incontinence, no dysuria, no hematuria Musculoskeletalno joint pain, no muscle tenderness Skinno bruising, no rashes, no pruritus Neuroright-sided weakness. Aphasic Psychno depression, no anxiety Physical Exam 2 Physical Exam: General-alert and oriented x3, no fever, no chills HEENT-head atraumatic and normocephalic, pupils equal and reactive to light, extraocular muscles intact Neck-no lymphadenopathy or thyromegaly, trachea midline Chest-clear to auscultation. No rales, wheezing or rhonchi Cardiac-rapid irregular rate and rhythm. Normal S1 and S2 Abdomen-normal bowel sounds, no hepatosplenomegaly Extremities-no cyanosis, clubbing, or edema Neuro-the patient is aphasic with dense right hemiparesis. Psych-normal affect, normal mood Results & Data Results & Data Vital Signs (Past 12 Hours) Vital Signs Temp Pulse Pulse Resp BP Pulse Ox O2 Del Method 03/12/24 11:04 93 H 117/81 03/12/24 10:46 37.1 C 119 H 32 H 144/91 H 97 Nasal Cannula 03/12/24 07:12 36.8 C 128 H 32 H 103/77 96 Nasal Cannula 03/12/24 07:08 126 H 03/12/24 05:46 142 H 31 H 149/93 H 95 Nasal Cannula 03/12/24 05:41 36.8 C 144 H 44 H 137/100 97 Nasal Cannula 03/12/24 03:11 36.9 C 111 H 18 128/79 93 Room Air O2 Flow Rate 03/12/24 11:04 03/12/24 10:46 3.0 03/12/24 07:12 3.0 03/12/24 07:08 03/12/24 05:46 3 03/12/24 05:41 3 03/12/24 03:11 Laboratory Results 03/12/24 05:55 03/12/24 05:55 PG Care Time/CCT Total # of Minutes Spent Total Time Spent with Patient: Total time spent is greater than 50% in coordination of care (as documented) at patient's floor/unit and/or counseling patient: Coding Level of Care Code 36544 SUB INP/OBS CARE 3/50MIN Diagnoses Stroke-like symptoms R29.90 Atrial fibrillation I48.91 Acute systolic CHF (congestive heart failure) I50.21 Acute respiratory failure with hypoxia J96.01
--- NOTE | 2024-03-12 14:41 | Cardiology Consultation ---
Date of Consultation March 12, 2024 Assessment & Plan (1) Acute systolic CHF (congestive heart failure): (2) Atrial fibrillation: (3) Cardiomyopathy: (4) Mitral regurgitation: Plan 1. Atrial fibrillation: He has a long history of permanent atrial fibrillation. Generally speaking he has demonstrated adequate rate control. In fact, at our last visit a few weeks ago he was concerned about lower heart rates. This resulted in a reduction in his diltiazem dose. He was prescribed Xarelto but there appears to be some debate about his compliance as a full pill bottle was found at home. Given his current event, he he will need to continue systemic anticoagulation. A switch to apixaban seems reasonable. Currently with high ventricular rates. Will discontinue the diltiazem infusion in favor of metoprolol given his cardiomyopathy. Heart rates may also improve as we addressed pulmonary vascular congestion. 2. Cardiomyopathy: Likely nonischemic. Possibly stress related given his infarct, although not classical appearance for Takotsubo's. The degree of dilation would suggest this is a more chronic process. It is possible he did not have adequate rate control for several weeks. Will start him on a standard medical regimen when the opportunity presents itself currently monitoring his blood pressures quite closely. 3. Congestive heart failure: Acute systolic. He seems to have an element of pulmonary vascular congestion. This may account for some of his tachycardia. Will attempt a mild diuresis monitoring his hemodynamics closely. Hopefully with some time and aggressive rate control we will see some improvement. In the absence of improvement in ischemic evaluation can be entertained (although, again he claims exercise quite vigorously on a regular basis without symptoms of angina.) 4. Mitral regurgitation: Moderate to severe on his recent echocardiogram. History of Present Illness Reason for Consultation: Abnormal echocardiogram Requesting Physician: Bere Attending Physician: Praneeth Blackburn MD History of Present Illness The patient is a 78-year-old gentleman with a history of permanent atrial fibrillation who was found by his to be aphasic and not moving the right side of his body. He was brought to the emergency room and felt to have suffered an embolic stroke. Unfortunately, the patient does take Xarelto and thrombolytics could not be administered. An echocardiogram was performed as part of his evaluation he was noted to have severely reduced LV systolic function. The patient can provide little history at this point due to expressive and possibly receptive aphasia. He will answer "yes" or "no". However, the answers do not seem to be very reliable or accurate. According to his who was present for the interview, he may have been more short of breath recently leading up to his event. He certainly been short of breath here in the hospital and was noted to have episodes of tachypnea. She did not recall him mentioning any chest pain or dizziness. He tends to be a very active individual and is quite proud of the fact that he is able to exercise vigorously on a daily basis. His did find some pill bottles after admission and there is some question about his compliance with medical therapy including his anticoagulation. Allergies Allergy/AdvReac Type Severity Reaction Status Date / Time No Known Drug Allergies Allergy Verified 03/11/24 15:51 Home Medications Medication Instructions Recorded Confirmed Type multivitamin 1 tab PO DAILY 04/11/19 03/11/24 History rivaroxaban 20 mg tablet (Xarelto) 20 mg PO QDD 30 days #90 tabs 08/26/23 03/11/24 Rx trazodone 100 mg tablet 100 mg PO DAILY #30 tabs 12/13/23 03/11/24 Rx diltiazem HCl 120 mg See Rx Instructions .Route .COMPLEX 03/11/24 03/11/24 History capsule,extended release 24 hr Patient History Surgical History S/P tonsillectomy S/P vasectomy S/P shoulder surgery Family History Mother Alzheimer disease Father Alzheimer disease Aunt Breast cancer Grandfather (Paternal) Myocardial infarction Other Family history non-contributory Denies family history of Ovarian cancer Prostate cancer Colorectal cancer Social History Smoking Status: Never smoker Second Hand Exposure: No; Do You Dip or Chew Tobacco: No; Tobacco Cessation Education Requested by Patient: No Hx Alcohol Use: Yes Alcohol type: beer Hx Substance Use: No Preferred Language: Tunisian Communication Ability: Unable Development Writer Required: No Beliefs That Will Affect Care: None marital status: Current Living Situation: Spouse current occupational status: retired current occupation: [employer] How many Children do You have: 2 How many Children do You have Comment: girl, boy Other Information That Helps Us Care for You: No Feels Safe at Home: Yes Safety Concerns: Feels Safe At This Time Childhood Exposure to Second-Hand Smoke: Yes Diet: regular Diet Comment: everything in moderation caffeine: Yes Dental Care, Regularly: Yes Physical Activity Frequency: Daily Physical Activity Frequency Comment: weight training Seatbelt Use: always Sunscreen Use: Yes Do you think of yourself as: straight/heterosexual Gender Identity: Male Assistive Devices: None Review of Systems Review of Systems: Other Could not be obtained due to expressive aphasia Physical Exam Physical Exam: The patient is alert. Mood and affect appeared normal. He did answer "yes" to several questions. HEENT: Pupils are equal and reactive to light and accommodation. Extraocular movements are intact. The sclerae are anicteric. Neuro: Weakness in the right arm and leg. Lungs: Clear to auscultation bilaterally. He has good air movement without use of accessory muscles. No rales wheezes or rhonchi. Cardiac: Heart demonstrates an irregular rhythm. Rapid rate.. Normal S1 and S2. No murmurs on examination. Pulses: The patient has palpable radial pulses bilaterally that are equal in intensity Extremities: There was no evidence of hypoperfusion. There is no cyanosis or clubbing. There is no edema. Skin: I did not appreciate any rashes on examination today. Results & Data Vital Signs (Past 12 Hours) Vital Signs Temp Pulse Pulse Resp BP Pulse Ox Pulse Ox 03/12/24 13:54 97 03/12/24 11:04 93 H 117/81 03/12/24 10:46 37.1 C 119 H 32 H 144/91 H 97 03/12/24 07:12 36.8 C 128 H 32 H 103/77 96 03/12/24 07:08 126 H 03/12/24 05:46 142 H 31 H 149/93 H 95 03/12/24 05:41 36.8 C 144 H 44 H 137/100 97 03/12/24 03:11 36.9 C 111 H 18 128/79 93 O2 Del Method O2 Flow Rate O2 Flow Rate 03/12/24 13:54 3 03/12/24 11:04 03/12/24 10:46 Nasal Cannula 3.0 03/12/24 07:12 Nasal Cannula 3.0 03/12/24 07:08 03/12/24 05:46 Nasal Cannula 3 03/12/24 05:41 Nasal Cannula 3 03/12/24 03:11 Room Air Laboratory Results Abnormal Lab Results 03/11/24 03/11/24 03/11/24 15:06 15:07 15:10 WBC 7.61 RBC 3.98 L Hgb 13.3 L POC Hgb 12.9 L Hct 36.2 L POC Hct 38 L MCV 91.0 MCH 33.4 MCHC 36.7 H RDW Std Deviation 40.2 RDW Coeff of [place] 12.1 Plt Count 164 MPV 8.7 L Immature Gran % (Auto) 0.4 Neut % (Auto) 74.3 Lymph % (Auto) 17.0 [place] % (Auto) 6.4 Eos % (Auto) 1.4 Baso % (Auto) 0.5 Neut # (Auto) 5.65 Lymph # (Auto) 1.29 [place] # (Auto) 0.49 Eos # (Auto) 0.11 Baso # (Auto) 0.04 Immature Gran # (Auto) 0.03 PT 11.6 INR 1.1 APTT 26 PTT Ratio 1.0 VBG pH VBG pCO2 VBG pO2 VBG HCO3 VBG O2 Saturation VBG Base Excess POC Sodium 136 Sodium 135 L POC Potassium 3.9 Potassium 3.9 POC Chloride 99 L Chloride 101 Carbon Dioxide 27 POC Total CO2 23 L Anion Gap 7 POC Anion Gap 19.0 POC BUN 17 BUN 18 Creatinine 0.99 POC Creatinine 1.0 Est Cr Clr Drug Dosing 65.5 Est GFR ( Amer) 84.2 Est GFR (Non-Af Amer) 72.6 BUN/Creatinine Ratio 18.2 Glucose 124 H POC Glucose 135 H POC Glucose (other) 126 H Estimat Average Glucose Hemoglobin A1c Lactate 1.3 Calcium 8.8 POC Ioniz Calcium Kris 1.15 Magnesium 2.1 Total Bilirubin 0.9 AST 23 ALT 16 Alkaline Phosphatase 49 Troponin I High Sens 24.7 H Total Protein 7.0 Albumin 4.2 Globulin 2.8 Albumin/Globulin Ratio 1.5 Triglycerides Cholesterol LDL Cholesterol, Calc VLDL Cholesterol, Calc HDL Cholesterol Cholesterol/HDL Ratio Urine Color Urine Appearance Urine pH Ur Specific [place] Urine Protein Urine Glucose (UA) Urine Ketones Urine Blood Urine Nitrite Urine Bilirubin Urine Urobilinogen Ur Leukocyte Esterase Urine WBC (Auto) Urine RBC (Auto) U Hyaline Cast (Auto) U Epithel Cells (Auto) Urine Bacteria (Auto) 03/11/24 03/11/24 03/12/24 17:33 20:07 05:43 WBC RBC Hgb POC Hgb Hct POC Hct MCV MCH MCHC RDW Std Deviation RDW Coeff of [place] Plt Count MPV Immature Gran % (Auto) Neut % (Auto) Lymph % (Auto) [place] % (Auto) Eos % (Auto) Baso % (Auto) Neut # (Auto) Lymph # (Auto) [place] # (Auto) Eos # (Auto) Baso # (Auto) Immature Gran # (Auto) PT INR APTT PTT Ratio VBG pH VBG pCO2 VBG pO2 VBG HCO3 VBG O2 Saturation VBG Base Excess POC Sodium Sodium POC Potassium Potassium POC Chloride Chloride Carbon Dioxide POC Total CO2 Anion Gap POC Anion Gap POC BUN BUN Creatinine POC Creatinine Est Cr Clr Drug Dosing Est GFR ( Amer) Est GFR (Non-Af Amer) BUN/Creatinine Ratio Glucose POC Glucose 124 H POC Glucose (other) Estimat Average Glucose Hemoglobin A1c Lactate Calcium POC Ioniz Calcium Kris Magnesium Total Bilirubin AST ALT Alkaline Phosphatase Troponin I High Sens 30.6 H Total Protein Albumin Globulin Albumin/Globulin Ratio Triglycerides Cholesterol LDL Cholesterol, Calc VLDL Cholesterol, Calc HDL Cholesterol Cholesterol/HDL Ratio Urine Color Yellow Urine Appearance Clear Urine pH 8.0 H Ur Specific [place] 1.045 H Urine Protein 1+ H Urine Glucose (UA) Negative Urine Ketones Negative Urine Blood Negative Urine Nitrite Negative Urine Bilirubin Negative Urine Urobilinogen Negative Ur Leukocyte Esterase Negative Urine WBC (Auto) 0-5 Urine RBC (Auto) 0-2 U Hyaline Cast (Auto) 0-2 U Epithel Cells (Auto) 0-2 Urine Bacteria (Auto) None Seen 03/12/24 05:55 WBC 13.18 H RBC 4.99 Hgb 16.5 D POC Hgb Hct 45.9 POC Hct MCV 92.0 MCH 33.1 MCHC 35.9 RDW Std Deviation 42.0 RDW Coeff of [place] 12.4 Plt Count 223 MPV 8.9 L Immature Gran % (Auto) 0.4 Neut % (Auto) 73.7 Lymph % (Auto) 18.1 [place] % (Auto) 6.8 Eos % (Auto) 0.6 Baso % (Auto) 0.4 Neut # (Auto) 9.73 H Lymph # (Auto) 2.38 [place] # (Auto) 0.89 H Eos # (Auto) 0.08 Baso # (Auto) 0.05 Immature Gran # (Auto) 0.05 PT INR APTT PTT Ratio VBG pH 7.38 VBG pCO2 44 VBG pO2 32 VBG HCO3 26 VBG O2 Saturation < 60.0 VBG Base Excess 0.5 POC Sodium Sodium 138 POC Potassium Potassium 4.2 POC Chloride Chloride 104 Carbon Dioxide 24 POC Total CO2 Anion Gap 10 POC Anion Gap POC BUN BUN 15 Creatinine 0.92 POC Creatinine Est Cr Clr Drug Dosing 68.0 Est GFR ( Amer) 92.0 Est GFR (Non-Af Amer) 79.4 BUN/Creatinine Ratio 16.3 Glucose 118 H POC Glucose POC Glucose (other) Estimat Average Glucose 114 Hemoglobin A1c 5.6 Lactate Calcium 9.4 POC Ioniz Calcium Kris Magnesium Total Bilirubin AST ALT Alkaline Phosphatase Troponin I High Sens 45.4 H D Total Protein Albumin Globulin Albumin/Globulin Ratio Triglycerides 87 Cholesterol 196 LDL Cholesterol, Calc 110 VLDL Cholesterol, Calc 17 HDL Cholesterol 69 Cholesterol/HDL Ratio 2.8 Urine Color Urine Appearance Urine pH Ur Specific [place] Urine Protein Urine Glucose (UA) Urine Ketones Urine Blood Urine Nitrite Urine Bilirubin Urine Urobilinogen Ur Leukocyte Esterase Urine WBC (Auto) Urine RBC (Auto) U Hyaline Cast (Auto) U Epithel Cells (Auto) Urine Bacteria (Auto) Diagnostic Findings MRI of the brain 03/11/2024: Acute infarcts in the left frontal lobe involving the anterior cerebral and watershed distributions. Chest x-ray 03/12/2024: Evidence of mild interstitial edema. PG Care Time/CCT Total # of Minutes Spent Total Time Spent with Patient: Total time spent is greater than 50% in coordination of care (as documented) at patient's floor/unit and/or counseling patient: Coding Level of Care Code 48218 INT INP/OBS CARE 375MIN Diagnoses Acute systolic CHF (congestive heart failure) I50.21 Atrial fibrillation I48.91 Cardiomyopathy I42.9 Mitral regurgitation I34.0
[2024-03-12] MEDS: METOPROLOL TARTRATE 25 MG TAB PO SCH (15:11)
[2024-03-12] MEDS: APIXABAN 5 MG TABLET PO SCH (20:15)
[2024-03-13 07:52] LABS: Basophils # (auto) 0.05 K/uL (0.00-0.20); Basophils % (auto) 0.4 %; Eosinophils # (auto) 0.02 K/uL (0.00-0.50); Eosinophils % (auto) 0.1 %; Hematocrit (blood only) 44.1 % (42.0-52.0); Hemoglobin 15.4 g/dl (14.0-18.0); Immature Granulocytes # (auto) 0.05 K/uL (0.01-0.20); Immature Granulocytes % (auto) 0.4 %; Lymphocytes # (auto) 1.06 K/uL (1.20-3.40); Lymphocytes % (auto) 7.9 %; Mean Corpuscular Hemoglobin 32.6 pg (25.0-34.0); Mean Corpuscular Hgb Conc 34.9 g/dL (32.0-36.0); Mean Corpuscular Volume 93.4 fL (80.0-100.0); Mean Platelet Volume 8.7 fL (9.4-12.4); Monocytes # (auto) 1.08 K/uL (0.11-0.59); Monocytes % (auto) 8.1 %; Neutrophils # (auto) 11.15 K/uL (1.40-6.50); Neutrophils % (auto) 83.1 %; Platelet Count 188 K/uL (130-400); RDW Coefficient of Variation 12.2 % (11.5-14.5); RDW Standard Deviation 42.1 fL (36.4-46.3); Red Blood Count 4.72 M/uL (4.70-6.10); White Blood Count 13.41 K/ul (4.8-10.8)
[2024-03-13 08:12] LABS: Calcium 8.8 mg/dl (8.6-10.3); Creatinine Clr Calc Pharmacy 63.6 ml/min; Est GFR (African American) 87.4 ml/min; Est GFR (Non-African American) 75.4 ml/min; Potassium 4.2 mmol/L (3.5-5.1)
[2024-03-13] MEDS: ATORVASTATIN 40 MG TAB PO SCH (08:22)
--- NOTE | 2024-03-13 12:31 | Cardiology Progress Note ---
Date of Service March 13, 2024 Assessment & Plan (1) Acute systolic CHF (congestive heart failure): (2) Atrial fibrillation: (3) Cardiomyopathy: (4) Mitral regurgitation: Plan 1. Atrial fibrillation: He has a long history of permanent atrial fibrillation. Overall rates are still high. Perhaps an element of pulmonary vascular congestion still. Toprol dose increased. Continue with apixaban. 2. Cardiomyopathy: Likely nonischemic. Will continue with metoprolol tartrate in the hospital and convert to succinate. He will need a more aggressive medical regimen in addition to better rate control. Will hold off on some of the other medications until his clinical status stabilizes. I think we can start Jardiance as this should have little effect on his blood pressure. The addition of Entresto and spironolactone can be deferred temporarily to avoid any significant hypotension in the setting of his acute stroke. 3. Congestive heart failure: Acute systolic. He had a very mild diuresis yesterday after 1 dose of diuretic. I think we can provide another dose. 4. Mitral regurgitation: Moderate to severe on his recent echocardiogram. Admission and Anticipated Discharge Date Admission Date: March 11, 2024 Subjective The patient was alert and responded to questions. He follows commands. However, the responses were not always reliable. He denied pain. He did report some symptoms of breathing trouble at 1 point but not at others. His did confirm that he still appears tachypneic at times. Review of Systems Review of Systems: Unobtainable due to cognitive status Physical Exam Physical Exam: The patient is alert. Mood and affect appeared normal. He did answer "yes" to several questions. He was able to say "hi". HEENT: Pupils are equal and reactive to light and accommodation. Extraocular movements are intact. The sclerae are anicteric. Neuro: Weakness in the right arm and leg. No movement of the right arm. He is able to move his foot slightly on the right side. Lungs: Clear to auscultation bilaterally. He has good air movement without use of accessory muscles. No rales wheezes or rhonchi. Cardiac: Heart demonstrates an irregular rhythm. Rapid rate. Normal S1 and S2. No murmurs on examination. Pulses: The patient has palpable radial pulses bilaterally that are equal in intensity Extremities: There was no evidence of hypoperfusion. There is no cyanosis or clubbing. There is no edema. Skin: I did not appreciate any rashes on examination today. Results & Data Vital Signs (Past 12 Hours) Vital Signs Temp Pulse Pulse Pulse Resp BP Pulse Ox 03/13/24 11:46 36.7 C 101 H 18 111/68 03/13/24 08:38 94 03/13/24 07:30 03/13/24 07:30 104 H 03/13/24 07:17 37.1 C 121 H 18 110/72 98 03/13/24 03:30 36.7 C 97 H 18 116/77 97 O2 Del Method O2 Flow Rate 03/13/24 11:46 Room Air 03/13/24 08:38 Room Air 03/13/24 07:30 Room Air 03/13/24 07:30 03/13/24 07:17 Nasal Cannula 2 03/13/24 03:30 Nasal Cannula 2 Laboratory Results Abnormal Lab Results 03/13/24 07:22 WBC 13.41 H RBC 4.72 Hgb 15.4 Hct 44.1 MCV 93.4 MCH 32.6 MCHC 34.9 RDW Std Deviation 42.1 RDW Coeff of [place] 12.2 Plt Count 188 MPV 8.7 L Immature Gran % (Auto) 0.4 Neut % (Auto) 83.1 Lymph % (Auto) 7.9 [place] % (Auto) 8.1 Eos % (Auto) 0.1 Baso % (Auto) 0.4 Neut # (Auto) 11.15 H Lymph # (Auto) 1.06 L [place] # (Auto) 1.08 H Eos # (Auto) 0.02 Baso # (Auto) 0.05 Immature Gran # (Auto) 0.05 Sodium 138 Potassium 4.2 Chloride 104 Carbon Dioxide 26 Anion Gap 8 BUN 23 Creatinine 0.96 Est Cr Clr Drug Dosing 63.6 Est GFR ( Amer) 87.4 Est GFR (Non-Af Amer) 75.4 BUN/Creatinine Ratio 24.0 H Glucose 107 H Calcium 8.8 PG Care Time/CCT Total # of Minutes Spent Total Time Spent with Patient: Total time spent is greater than 50% in coordination of care (as documented) at patient's floor/unit and/or counseling patient: Coding Level of Care Code 24712 SUB INP/OBS CARE 2/35MIN Diagnoses Acute systolic CHF (congestive heart failure) I50.21 Atrial fibrillation I48.91 Cardiomyopathy I42.9 Mitral regurgitation I34.0
[2024-03-13] MEDS: METOPROLOL TARTRATE 50 MG TAB PO SCH (12:32)
[2024-03-13] MEDS: FUROSEMIDE INJ 20 MG/2 ML VIAL IV ONE (13:03)
--- NOTE | 2024-03-13 13:26 | Fluoroscopy Report ---
FL video swallow CLINICAL HISTORY: 78 years-old Male with assess for aspiration. Dysphasia TECHNIQUE: Video fluoroscopic evaluation of swallowing was performed in the AP and lateral projection s by the speech pathology staff. The patient is fed varying consistencies of barium. FLUOROSCOPY TIME: 1.52 minutes. 8.76 mGy. 1989 images were submitted. COMPARISON STUDY: None. FINDINGS: There is normal hyoid excursion and epiglottic deflection. No significant penetration or as piration identified. Swallowing function is within normal limits. Mild esophageal dysmotility noted. IMPRESSION: 1. No aspiration identified. 2. Please see the speech pathologist report for detailed findings and recommendations. ACT 112: Negative or not required by law. Electronically signed by: Deni Mcclelland M.D. 03/13/2024 1:25 PM
--- NOTE | 2024-03-13 13:36 | Hospitalist Progress Note ---
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 This apparently occurred while on Xarelto but family states that he may not have been taking his Xarelto appropriately. Nevertheless, Xarelto has been switched to Eliquis and he is now on aspirin and a atorvastatin. Neurology consultation and recommendations appreciated. OT, PT, speech evaluations appreciated. IPR placement at discharge pending. (2) Atrial fibrillation: Plan: Metoprolol dosage uptitrated today, March 13. Cardizem drip has been discontinued. Appreciate cardiology consultation and recommendations. Xarelto has been switched to Eliquis. (3) Acute systolic CHF (congestive heart failure): Plan: Repeat intravenous Lasix today, March 13. Monitor intake and output. Repeat portable chest x-ray tomorrow, March 14. Cardiology will add Jardiance today, March 13 (4) Acute respiratory failure with hypoxia: Plan: Oxygen has been weaned off. He is now on room air. Resolved Plan [facility] when arrangements are finalized Admission and Anticipated Discharge Date Admission Date: March 11, 2024 Subjective Alert and oriented. No acute distress. He did pretty well with his video swallow study this morning, March 13. Cardiology entry noted. Jardiance has been added and he will receive another dose of intravenous Lasix. He does have inspiratory rales consistent with CHF but he is on room air now fortunately. Will repeat portable chest x-ray again tomorrow, March 14. Metoprolol dosage uptitrated for better heart rate control today, March 13. Review of Systems 2 Review of Systems: Constitutionalno fever or chills ENTno blurred vision, no double vision, no epistaxis, no sore throat Respiratoryno cough, no wheezing, no shortness of breath Cardiacno palpitations, no chest pain, no syncope Olivier nausea, vomiting, diarrhea, melena, hematochezia GUno urinary retention, no urinary incontinence, no dysuria, no hematuria Musculoskeletalno joint pain, no muscle tenderness Skinno bruising, no rashes, no pruritus Neuroright-sided weakness. Aphasic Psychno depression, no anxiety Physical Exam 2 Physical Exam: General-alert and oriented x3, no fever, no chills HEENT-head atraumatic and normocephalic, pupils equal and reactive to light, extraocular muscles intact Neck-no lymphadenopathy or thyromegaly, trachea midline Chest-inspiratory bibasilar rales. No wheezing. No dullness. i Cardiac-mildly tachycardic irregular rate and rhythm. Normal S1 and S2 Abdomen-normal bowel sounds, no hepatosplenomegaly Extremities-no cyanosis, clubbing, or edema Neuro-the patient is aphasic with persistent dense right hemiparesis. Psych-normal affect, normal mood Results & Data Results & Data Vital Signs (Past 12 Hours) Vital Signs Temp Pulse Pulse Pulse Resp BP Pulse Ox 03/13/24 13:00 126/65 03/13/24 11:46 36.7 C 101 H 18 111/68 03/13/24 08:38 94 03/13/24 07:30 03/13/24 07:30 104 H 03/13/24 07:17 37.1 C 121 H 18 110/72 98 03/13/24 03:30 36.7 C 97 H 18 116/77 97 O2 Del Method O2 Flow Rate 03/13/24 13:00 03/13/24 11:46 Room Air 03/13/24 08:38 Room Air 03/13/24 07:30 Room Air 03/13/24 07:30 03/13/24 07:17 Nasal Cannula 2 03/13/24 03:30 Nasal Cannula 2 Laboratory Results 03/13/24 07:22 03/13/24 07:22 PG Care Time/CCT Total # of Minutes Spent Total Time Spent with Patient: Total time spent is greater than 50% in coordination of care (as documented) at patient's floor/unit and/or counseling patient: Coding Level of Care Code 65056 SUB INP/OBS CARE 3/50MIN Diagnoses Stroke-like symptoms R29.90 Atrial fibrillation I48.91 Acute systolic CHF (congestive heart failure) I50.21 Acute respiratory failure with hypoxia J96.01
[2024-03-13] MEDS: EMPAGLIFLOZIN 10 MG TAB PO SCH (14:41)
[2024-03-13] MEDS: METOPROLOL TARTRATE 1 MG/ML VIAL IV STA (14:52)
[2024-03-13] MEDS: DIGOXIN 500 MCG in SYRINGE 8 ML IV ONE (16:22)
[2024-03-13] MEDS: DIGOXIN 250 MCG in SYRINGE 9 ML IV ONE (20:17)
--- NOTE | 2024-03-14 07:43 | XRay Report ---
XR chest 1V portable HISTORY: 78 years-old Male CHF acute shortness of breath COMPARISON: 03/12/2024 TECHNIQUE: AP view of the chest FINDINGS: Cardiomegaly. Pulmonary vascular congestion with improving pulmonary edema. No pneumothorax. Small pl eural effusions with improving bibasilar densities. Degenerative changes of the shoulders and spine. Chronic remodeling of the glenohumeral joints. IMPRESSION: 1. Cardiomegaly with improving pulmonary edema. 2. Small pleural effusions with resolving bibasilar opacities, likely atelectatic. ACT 112: Negative or not required by law. The above report was generated using voice recognition software. It may contain grammatical, syntax o r spelling errors. Electronically signed by: Deni Mcclelland M.D. 03/14/2024 7:42 AM
[2024-03-14 08:01] LABS: Basophils # (auto) 0.05 K/uL (0.00-0.20); Basophils % (auto) 0.5 %; Eosinophils # (auto) 0.03 K/uL (0.00-0.50); Eosinophils % (auto) 0.3 %; Hematocrit (blood only) 43.3 % (42.0-52.0); Hemoglobin 15.3 g/dl (14.0-18.0); Immature Granulocytes # (auto) 0.02 K/uL (0.01-0.20); Immature Granulocytes % (auto) 0.2 %; Lymphocytes # (auto) 1.44 K/uL (1.20-3.40); Lymphocytes % (auto) 14.1 %; Mean Corpuscular Hgb Conc 35.3 g/dL (32.0-36.0); Mean Corpuscular Volume 93.5 fL (80.0-100.0); Mean Platelet Volume 8.8 fL (9.4-12.4); Monocytes % (auto) 7.8 %; Neutrophils # (auto) 7.87 K/uL (1.40-6.50); Neutrophils % (auto) 77.1 %; Platelet Count 186 K/uL (130-400); RDW Coefficient of Variation 12.4 % (11.5-14.5); RDW Standard Deviation 42.5 fL (36.4-46.3); Red Blood Count 4.63 M/uL (4.70-6.10); White Blood Count 10.21 K/ul (4.8-10.8)
[2024-03-14 08:17] LABS: BUN Creatinine Ratio 30.4 (10-20); Calcium 8.7 mg/dl (8.6-10.3); Creatinine Clr Calc Pharmacy 54.7 ml/min; Est GFR (African American) 81.2 ml/min; Est GFR (Non-African American) 70.1 ml/min; Potassium 4.3 mmol/L (3.5-5.1)
--- NOTE | 2024-03-14 11:14 | Hospitalist Progress Note ---
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 This apparently occurred while on Xarelto but family states that he may not have been taking his Xarelto appropriately. Nevertheless, Xarelto has been switched to Eliquis and he is now on aspirin and atorvastatin. Neurology consultation and recommendations appreciated. OT, PT, speech evaluations appreciated. IPR placement at discharge pending. Hopefully tomorrow, March 15 (2) Atrial fibrillation: Plan: Metoprolol dosage uptitrated on March 13. Digoxin was also started on March. Heart rate is now under control. Cardizem drip has been discontinued. Appreciate cardiology consultation and recommendations. Xarelto has been switched to Eliquis. (3) Acute systolic CHF (congestive heart failure): Plan: Now resolved after several doses of parenteral Lasix. Chest x-ray done today, March 14, looks better. Monitor intake and output. Cardiology has added Jardiance as well (4) Acute respiratory failure with hypoxia: Plan: Oxygen has been weaned off. He is now on room air. Resolved Plan [facility] rehab hopefully tomorrowMarch 15 Admission and Anticipated Discharge Date Admission Date: March 11, 2024 Subjective Alert and oriented. is at the bedside. Rapid atrial fibrillation has been brought under control with addition of digoxin to his metoprolol. He is regaining some movement of his right arm and right leg and his speech has also improved which is encouraging. Hopefully he will go to [facility] tomorrow, March 15. Figueroa catheter will be removed today, March 14. Review of Systems 2 Review of Systems: Constitutionalno fever or chills ENTno blurred vision, no double vision, no epistaxis, no sore throat Respiratoryno cough, no wheezing, no shortness of breath Cardiacno palpitations, no chest pain, no syncope Olivier nausea, vomiting, diarrhea, melena, hematochezia GUno urinary retention, no urinary incontinence, no dysuria, no hematuria Musculoskeletalno joint pain, no muscle tenderness Skinno bruising, no rashes, no pruritus Neuroright-sided weakness. Aphasic Psychno depression, no anxiety Physical Exam 2 Physical Exam: General-alert and oriented x3, no fever, no chills HEENT-head atraumatic and normocephalic, pupils equal and reactive to light, extraocular muscles intact Neck-no lymphadenopathy or thyromegaly, trachea midline Chest-inspiratory bibasilar rales. No wheezing. No dullness. i Cardiac-irregular rhythm but heart rate is now under control. Normal S1 and S2 Abdomen-normal bowel sounds, no hepatosplenomegaly Extremities-no cyanosis, clubbing, or edema Neuro-aphasia and right-sided weakness are improving. Psych-normal affect, normal mood Results & Data Results & Data Vital Signs (Past 12 Hours) Vital Signs Temp Pulse Pulse Pulse Resp BP Pulse Ox 03/14/24 08:00 03/14/24 08:00 68 03/14/24 07:54 36.9 C 81 18 123/71 94 03/14/24 03:24 36.7 C 83 27 H 103/65 93 O2 Del Method 03/14/24 08:00 Room Air 03/14/24 08:00 03/14/24 07:54 Room Air 03/14/24 03:24 Room Air Laboratory Results 03/14/24 07:36 03/14/24 07:36 PG Care Time/CCT Total # of Minutes Spent Total Time Spent with Patient: Total time spent is greater than 50% in coordination of care (as documented) at patient's floor/unit and/or counseling patient: Coding Level of Care Code 08554 SUB INP/OBS CARE 3/50MIN Diagnoses Stroke-like symptoms R29.90 Atrial fibrillation I48.91 Acute systolic CHF (congestive heart failure) I50.21 Acute respiratory failure with hypoxia J96.01
--- NOTE | 2024-03-14 11:39 | Cardiology Progress Note ---
Date of Service March 14, 2024 Assessment & Plan (1) Acute HFrEF (heart failure with reduced ejection fraction): (2) Cardiomyopathy: (3) Atrial fibrillation: (4) Mitral regurgitation: Plan ASSESSMENT/PLAN: 1. Acute heart failure with reduced EF: Presented with stroke but also newly diagnosed cardiomyopathy and and heart failure. He appears euvolemic. Breathing back to baseline. BUN creeping upward, suggesting azotemia. Last dose of Lasix 20 mg IV was 03/13/2024. No diuretic necessary today. Continue Jardiance. Convert to metoprolol succinate prior to discharge. No ARNI or mineralocorticoid antagonist given acute stroke and recommended permissive hypertension by neurology for now. Currently mildly hypotensive. Once able to be more aggressive with heart failure medications, would recommend low-dose Entresto and spironolactone if no contraindications, likely in the outpatient setting. ICD for primary prevention if LV systolic function does not significantly improve with optimize medical therapy. Low-sodium diet, less than 2000 mg sodium daily. Daily weights. Strict I's and O's. Recommend heart failure program on discharge. 2. Cardiomyopathy: Etiology uncertain but could be due to acute neurologic event, tachycardia, other. Do not recommend ischemic evaluation currently as he presented with acute stroke. Optimize medical therapy as able and repeat echo imaging in the outpatient setting. Would consider ischemic evaluation if no significant improvement with optimal medical therapy. 3. Atrial fibrillation: Permanent. Initially rapid heart rates but heart rate well-controlled now on beta-donald and initiation of digoxin. Digoxin level normal today after load by primary hospitalist service. Continue anticoagulation for stroke risk reduction. Monitor CBC periodically. Monitor digoxin level periodically. Will reduce dose to 125 mcg. Continue beta- donald. 4. Mitral regurgitation: Reported as moderate to severe on current echo. Recommend repeating echo in the outpatient setting to reevaluate. 5. Disposition: Recommend close follow-up in the outpatient setting with his primary cooker syrup, Dr. Amaya. Recommend heart failure program. Patient care communicated with primary hospitalist, Dr. Blackburn. Admission and Anticipated Discharge Date Admission Date: March 11, 2024 Subjective Patient seen earlier this morning with his and daughter at the bedside. Breathing has improved. Denies orthopnea. Still has some aphasia but speaking has improved per his family. He denies chest pain, palpitations, syncope, edema, or bleeding. He still had been unable to move his right arm but during our conversation, started moving his right arm. His daughter had questions regarding heart failure, cardiomyopathy, and medical therapy, which were discussed and answered. Physical Exam Physical Exam: Gen.: No acute distress. Alert. HEENT: Anicteric sclera. Neck: No JVD. Cardiac: Irregularly irregular. Normal heart rate. Normal S1-S2. No murmurs, rubs, or gallops. Pulmonary: Clear to auscultation bilaterally without wheezes, rales, or rhonchi. Abdomen: Soft, nontender, nondistended, with normoactive bowel sounds. No bruits noted. Extremities: 2+ radial pulses bilaterally. 2+ posterior tibialis pulses bilaterally. No edema or cyanosis. Results & Data Vital Signs (Past 12 Hours) Vital Signs Temp Pulse Pulse Pulse Resp BP Pulse Ox 03/14/24 11:22 36.6 C 62 18 97/59 L 96 03/14/24 08:00 03/14/24 08:00 68 03/14/24 07:54 36.9 C 81 18 123/71 94 03/14/24 03:24 36.7 C 83 27 H 103/65 93 O2 Del Method 03/14/24 11:22 Room Air 03/14/24 08:00 Room Air 03/14/24 08:00 03/14/24 07:54 Room Air 03/14/24 03:24 Room Air Intake & Output 03/12/24 03/13/24 03/14/24 03/15/24 06:59 06:59 06:59 06:59 Intake Total 706.667 / 064.177 5807.417 / 1553.417 440 / 440 Output Total 300 / 300 1750 / 1750 1001 / 1001 Balance 406.667 / 406.667 -196.583 / -196.583 -561 / -561 Weight 160 lb 0.889 oz 156 lb 4.924 oz 142 lb 13.753 oz Laboratory Results Laboratory Results - last 24 hr 03/14/24 07:36 WBC 10.21 RBC 4.63 L Hgb 15.3 Hct 43.3 MCV 93.5 MCH 33.0 MCHC 35.3 RDW Std Deviation 42.5 RDW Coeff of [place] 12.4 Plt Count 186 MPV 8.8 L Immature Gran % (Auto) 0.2 Neut % (Auto) 77.1 Lymph % (Auto) 14.1 [place] % (Auto) 7.8 Eos % (Auto) 0.3 Baso % (Auto) 0.5 Neut # (Auto) 7.87 H Lymph # (Auto) 1.44 [place] # (Auto) 0.80 H Eos # (Auto) 0.03 Baso # (Auto) 0.05 Immature Gran # (Auto) 0.02 Sodium 141 Potassium 4.3 Chloride 107 Carbon Dioxide 26 Anion Gap 8 BUN 31 H Creatinine 1.02 Est Cr Clr Drug Dosing 54.7 Est GFR ( Amer) 81.2 Est GFR (Non-Af Amer) 70.1 BUN/Creatinine Ratio 30.4 H Glucose 83 Calcium 8.7 Digoxin 1.0 Diagnostic Findings Labs reviewed and notable for stable renal function, normal potassium, BUN trending upward, normal blood counts. Telemetry personally reviewed: Atrial fibrillation with adequate rate control. ECG personally reviewed 03/14/2024 at 9:14 AM: A-fib [address]/T wave abnormality. Echo report reviewed 03/12/2024: Moderate LV dilation. Severely reduced LV systolic function. EF 15 to 20%. Severe global hypokinesis of the LV with akinetic inferior base. Moderate left atrial dilation. Moderate to severe MR. Moderate TR. Elevated RVSP. Medications Administered Current Inpatient Medications Apixaban (Apixaban 5 Mg Tablet) 5 mg PO BID [facility] Stop: 04/11/24 20:59 Last Admin: 03/14/24 08:38 Dose: 5 mg Aspirin (Aspirin 81 Mg Ectab) 81 mg PO QAM OLYA Stop: 04/11/24 11:44 Last Admin: 03/14/24 08:38 Dose: 81 mg Atorvastatin Calcium (Atorvastatin 40 Mg Tab) 40 mg PO QAM OLYA Stop: 04/12/24 08:59 Last Admin: 03/14/24 08:38 Dose: 40 mg Digoxin (Digoxin 0.25 Mg Tab) 0.25 mg PO DAILY@1600 [facility] Stop: 04/13/24 15:59 Empagliflozin (Empagliflozin 10 Mg Tab) 10 mg PO DAILY OLYA Stop: 04/12/24 12:44 Last Admin: 03/14/24 08:37 Dose: 10 mg Metoprolol Tartrate (Metoprolol Tartrate 50 Mg Tab) 50 mg PO TID OLYA Stop: 04/12/24 13:59 Last Admin: 03/14/24 09:58 Dose: 50 mg PG Care Time/CCT Total # of Minutes Spent Total Time Spent with Patient: Total time spent is greater than 50% in coordination of care (as documented) at patient's floor/unit and/or counseling patient: Coding Level of Care Code 32831 SUB INP/OBS CARE 3/50MIN Diagnoses Acute HFrEF (heart failure with reduced ejection fraction) I50.21 Cardiomyopathy I42.9 Atrial fibrillation I48.91 Mitral regurgitation I34.0
[2024-03-14] MEDS: DIGOXIN 0.125 MG TAB PO SCH (15:35)
[2024-03-14] MEDS ORDERED: DIGOXIN 0.25 MG TAB PO SCH (16:00)
[2024-03-14] MEDS: ONDANSETRON INJ 2 MG/ML 2 ML VIAL IV STA (18:00)
[2024-03-14] MEDS: ONDANSETRON INJ 2 MG/ML 2 ML VIAL IV PRN (18:17)
[2024-03-14] MEDS: METOPROLOL TARTRATE 25 MG TAB PO SCH (20:28)
[2024-03-15 07:36] VITALS: RESP 18
--- NOTE | 2024-03-15 08:52 | Cardiology Progress Note ---
Date of Service March 15, 2024 Assessment & Plan (1) Acute HFrEF (heart failure with reduced ejection fraction): (2) Cardiomyopathy: (3) Atrial fibrillation: (4) Mitral regurgitation: Plan ASSESSMENT/PLAN: 1. Acute heart failure with reduced EF: Presented with stroke but also newly diagnosed cardiomyopathy and heart failure. He appears euvolemic. Breathing back to baseline. Last dose of Lasix 20 mg IV was 03/13/2024. No diuretic necessary today. Continue Jardiance. Convert to metoprolol succinate prior to discharge. No ARNI or mineralocorticoid antagonist given acute stroke and recommended permissive hypertension by neurology for now. Once able to be more aggressive with heart failure medications, would recommend low-dose Entresto and spironolactone if no contraindications, likely in the outpatient setting. ICD for primary prevention if LV systolic function does not significantly improve with optimize medical therapy. Low-sodium diet, less than 2000 mg sodium daily. Daily weights. Strict I's and O's. Recommend heart failure program on discharge. 2. Cardiomyopathy: Etiology uncertain but could be due to acute neurologic event, tachycardia, other. Do not recommend ischemic evaluation currently as he presented with acute stroke. Optimize medical therapy as able and repeat echo imaging in the outpatient setting. Would consider ischemic evaluation if no significant improvement with optimal medical therapy. 3. Atrial fibrillation: Permanent. Initially rapid heart rates but heart rate well-controlled now on beta-donald and initiation of digoxin. Digoxin level normal today after load by primary hospitalist service. Continue antico agulation for stroke risk reduction. Monitor CBC periodically. Monitor digoxin level periodically. Continue beta-donald. 4. Mitral regurgitation: Reported as moderate to severe on current echo. Recommend repeating echo in the outpatient setting to reevaluate. 5. Paroxysmal nonsustained ventricular tachycardia: Not unexpected in the setting of cardiomyopathy. It was very brief and he was asymptomatic. Continue beta-donald. If has significant recurrence or if sustained, would remain hospitalized, otherwise continue current medical therapy. 6.Disposition: Recommend close follow-up in the outpatient setting with his primary grill chef, Dr. Amaya. Recommend heart failure program. Patient care communicated with primary hospitalist, Dr. Blackburn. Admission and Anticipated Discharge Date Admission Date: March 11, 2024 Subjective Patient seen this morning. Denies shortness of breath, orthopnea, chest pain, palpitations. Speech continues to improve. He has more strength in his right arm today than he did yesterday. His informed me that he is likely leaving for rehab today. His was present at the bedside. Physical Exam Physical Exam: Gen.: No acute distress. Alert. HEENT: Anicteric sclera. Neck: No JVD. Cardiac: Irregularly irregular. Normal rate. Normal S1-S2. No murmurs, rubs, or gallops. Pulmonary: Clear to auscultation bilaterally without wheezes, rales, or rhonchi. Abdomen: Soft, nontender, nondistended, with normoactive bowel sounds. No bruits noted. Extremities: 2+ radial pulses bilaterally. 2+ posterior tibialis pulses bilaterally. No edema. No cyanosis. Results & Data Vital Signs (Past 12 Hours) Vital Signs Temp Pulse Pulse Resp BP Pulse Ox O2 Del Method 03/15/24 07:35 36.4 C L 82 18 124/87 93 Room Air 03/15/24 07:35 216 H 03/15/24 04:43 36.3 C L 90 16 120/63 97 Room Air 03/14/24 23:50 36.3 C L 94 H 20 125/85 93 Room Air Intake & Output 03/13/24 03/14/24 03/15/24 03/16/24 06:59 06:59 06:59 06:59 Intake Total 1553.417 / 1553.417 440 / 440 750 / 750 Output Total 1750 / 1750 1001 / 1001 1451 / 1451 Balance -196.583 / -196.583 -561 / -561 -701 / -701 Weight 156 lb 4.924 oz 142 lb 13.753 oz 149 lb 0.52 oz Laboratory Results Laboratory Results - last 24 hr 03/15/24 07:37 Sodium 140 Potassium 4.3 Chloride 105 Carbon Dioxide 29 Anion Gap 6 BUN 28 H Creatinine 0.89 Est Cr Clr Drug Dosing 65.4 Est GFR ( Amer) 94.9 Est GFR (Non-Af Amer) 81.9 BUN/Creatinine Ratio 31.5 H Glucose 88 Calcium 8.7 Digoxin 0.8 Diagnostic Findings Labs reviewed from 03/15/2024: Normal digoxin level. Normal renal function, normal potassium. Telemetry personally reviewed: Atrial fibrillation with adequate rate control. After seeing him, notified by nursing staff about nonsustained ventricular tachycardia. He was completely asymptomatic. Rhythm strip reviewed. 9 beat run of wide-complex tachycardia. Medications Administered Current Inpatient Medications Apixaban (Apixaban 5 Mg Tablet) 5 mg PO BID [facility] Stop: 04/11/24 20:59 Last Admin: 03/15/24 08:17 Dose: 5 mg Aspirin (Aspirin 81 Mg Ectab) 81 mg PO QAM [facility] Stop: 04/11/24 11:44 Last Admin: 03/15/24 08:17 Dose: 81 mg Atorvastatin Calcium (Atorvastatin 40 Mg Tab) 40 mg PO QAM [facility] Stop: 04/12/24 08:59 Last Admin: 03/15/24 08:17 Dose: 40 mg Digoxin (Digoxin 0.125 Mg Tab) 0.125 mg PO DAILY@1600 [facility] Stop: 04/13/24 15:59 Last Admin: 03/14/24 15:35 Dose: 0.125 mg Empagliflozin (Empagliflozin 10 Mg Tab) 10 mg PO DAILY [facility] Stop: 04/12/24 12:44 Last Admin: 03/15/24 08:16 Dose: 10 mg Metoprolol Tartrate (Metoprolol Tartrate 25 Mg Tab) 25 mg PO BID [facility] Stop: 04/13/24 20:59 Last Admin: 03/15/24 08:17 Dose: 25 mg Ondansetron HCl (Ondansetron Inj 2 Mg/Ml 2 Ml Vial) 4 mg IV Q4H PRN PRN Reason: Nausea Stop: 04/13/24 17:54 Last Admin: 03/14/24 18:17 Dose: 4 mg PG Care Time/CCT Total # of Minutes Spent Total Time Spent with Patient: Total time spent is greater than 50% in coordination of care (as documented) at patient's floor/unit and/or counseling patient: Coding Level of Care Code 11157 SUB INP/OBS CARE 3/50MIN Diagnoses Acute HFrEF (heart failure with reduced ejection fraction) I50.21 Cardiomyopathy I42.9 Atrial fibrillation I48.91 Mitral regurgitation I34.0
[2024-03-15 09:38] LABS: BUN Creatinine Ratio 31.5 (10-20); Calcium 8.7 mg/dl (8.6-10.3); Creatinine Clr Calc Pharmacy 65.4 ml/min; Est GFR (African American) 94.9 ml/min; Est GFR (Non-African American) 81.9 ml/min; Potassium 4.3 mmol/L (3.5-5.1)
--- NOTE | 2024-03-15 10:24 | Discharge Summary ---
Discharge Summary Date of Service March 15, 2024 Principal Dx & Hospital Course #1 = Principal Diagnosis (1) Stroke-like symptoms: MRI reveals multiple acute left frontal ischemic CVA. This apparently occurred while on Xarelto but family states that he may not have been taking his Xarelto appropriately. Nevertheless, Xarelto has been switched to Eliquis and he is now on aspirin and atorvastatin. Neurology consultation and recommendations appreciated. OT, PT, speech evaluations appreciated. Discharge to [facility] rehab facility today, March 15 (2) Atrial fibrillation: Metoprolol dosage uptitrated on March 13. Digoxin was also started on March. Heart rate is now under control. Cardizem drip has been discontinued. Appreciate cardiology consultation and recommendations. Xarelto has been switched to Eliquis. (3) Acute systolic CHF (congestive heart failure): Now resolved after several doses of parenteral Lasix. Chest x-ray done on March 14 looked better. Monitor intake and output. Cardiology has added Jardiance as well (4) Acute respiratory failure with hypoxia: Oxygen has been weaned off. He is now on room air. Resolved Plan [facility] rehab today, March 15 Admission HPI Per Admitting Provider Patient is a 78 year old male with a history of A fib on Xarelto and osteoarthritis. The following history was taken by the patient's at bedside due to the patient being nonverbal. As per the patient's , at about 1330 today the patient's found him on the floor unresponsive. She stated that the patient's right side was not working and he was verbally unresponsive, so she called an ambulance. He has remained the same since admission. The patient currently can only respond with yes and the right side of his body is flaccid. He does not have any cognitive deficits at baseline and he has not had symptoms like this in the past. His stated that he has had ongoing dizziness for the past 2 months that gets worse with standing, along with daily dull headaches. He does not have any history of strokes, IL, DVT, PE, bleeding or clotting disorders, hypertension, hyperlipidemia, diabetes, COPD, cancer. He does not use any oxygen at home. The patient's states that he has a living will and wishes to be DNR/DNI. Discharge Exam General-alert and oriented x3, no fever, no chills HEENT-head atraumatic and normocephalic, pupils equal and reactive to light, extraocular muscles intact Neck-no lymphadenopathy or thyromegaly, trachea midline Chest-inspiratory bibasilar rales. No wheezing. No dullness. i Cardiac-irregular rhythm but heart rate is now under control. Normal S1 and S2 Abdomen-normal bowel sounds, no hepatosplenomegaly Extremities-no cyanosis, clubbing, or edema Neuro-aphasia and right-sided weakness are improving. 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 Heart rate control with metoprolol and digoxin. Jardiance has been added for treatment of heart failure Pending Studies at Discharge: No Stand-Alone Forms: My [employer], Medications to Prevent Stroke Skilled Items Patient informed of condition?: Yes DNR: Yes Discharge Level of Care: Acute rehab Communicable Disease: No Discharge Prognosis: Stable Lines: None Urinary Catheter: No Medications and DC Order Prescriptions: New aspirin 81 mg Tablet,Delayed Release (Dr/Ec) 81 mg PO QAM Qty: 0 0RF metoprolol tartrate 25 mg Tablet 25 mg PO BID Qty: 0 0RF Eliquis 5 mg Tablet 5 mg PO BID Qty: 0 0RF atorvastatin 40 mg Tablet 40 mg PO QAM Qty: 0 0RF Jardiance 10 mg Tablet 10 mg PO DAILY Qty: 0 0RF digoxin [Digitek] 125 mcg (0.125 mg) Tablet 0.125 mg PO DAILY@1600 Qty: 0 0RF Continued trazodone 100 mg tablet 100 mg PO DAILY Qty: 30 2RF multivitamin Tablet 1 tab PO DAILY Rx Instructions: Unable to verify OTC meds at this date/time. Discontinued Xarelto 20 mg tablet 20 mg PO QDD 30 Days Qty: 90 3RF diltiazem HCl 120 mg capsule,extended release 24hr See Rx Instructions .ROUTE .COMPLEX Rx Instructions: Pharmacy shows 120mg by mouth three times daily. However, was last verified by MD as 120mg once daily. Per pharmacy pt may have changed how he is taking medication and didn't inform them. Discharge Orders: Discharge Order (Routine); Ordered 03/15/24 Ordered By: Praneeth Blackburn Admission Data Admit Date/Time: 03/11/24 16:07 Attending Provider: Praneeth Blackburn Admit Provider: Joby Giang Primary Care Provider: Matt Vanegas Other Providers: Joby Giang; Sharif Valiente; Enrique Nassar; Ag Cosme; Matt Mata; Bladimir Romero; Chet Reyna; Michael Leigh Jr; Solo Peraza; Mamie Go; Wanda Jimenes; Robert Love; Robert Amaya; Praneeth Guzman; Philomena Fletcher; David Carolina; Laya Yee; Esteban Baugh; Jason Moreno; Lane Burger; Galileo Arce Hospital Stay Data Consultations 03/11/24 15:34 ED Decision to Admit Stat 03/11/24 16:05 Consult Neurology Routine 03/12/24 11:44 Consult Cardiology Routine 03/14/24 11:53 [facility] Referral Routine Diagnostic Imagining Performed 03/11/24 14:36 CT angio head w con Stat CT angio neck with con Stat CT cervical spine wo con Stat CT head/brain wo con Stat 03/11/24 15:40 MRI Brain [MR brain wo con] Stat 03/13/24 10:00 FL video swallow Routine Pending Results Patient Have Any Pending Studies at Discharge: No Discharge Instructions Given to Patient (Per Discharging Provider) Xarelto has been switched to Eliquis. Heart rate control with metoprolol and digoxin. Jardiance has been added for treatment of heart failure Total Time Total Time Spent Total Time Spent (In Minutes): 50 minutes Coding Level of Care Code 79281 INP/OBS DISCH >30 MIN Diagnoses Stroke-like symptoms R29.90 Atrial fibrillation I48.91 Acute systolic CHF (congestive heart failure) I50.21 Acute respiratory failure with hypoxia J96.01
[2024-03-15 11:15] VITALS: BP 111/71; TEMP 98.1; O2SAT 96
[2024-03-15 12:00] VITALS: PULSE 83
--- NOTE | 2024-03-15 22:32 | Electrocardiogram Report ---
Test Reason : Blood Pressure : */* mmHG Vent. Rate : 85 BPM Atrial Rate : 227 BPM P-R Int : * ms QRS Dur : 96 ms QT Int : 386 ms P-R-T Axes : * 0 148 degrees QTcB Int : 459 ms Atrial fibrillation Incomplete right bundle branch block Possible Inferior infarct Abnormal ECG When compared with ECG of 11-Mar-2024 15:05, T wave inversion more evident in Anterolateral leads Premature ventricular complexes are no longer Present Confirmed by Solo Peraza ([id number]) on 03/15/2024 10:32:26 PM Referred By: REFERRED SELF Confirmed By: Solo Peraza
== END 2024-03-15 13:11 | DRG 64 ==
LOC: ED 14:51 → SUATTDRO 16:07 → 2S 16:07

== ENCOUNTER 2024-04-24 13:32 | Inpatient (IN) ==
[2024-04-24 13:51] VITALS: TEMP 98.1
[2024-04-24] MEDS ORDERED: ONDANSETRON INJ 2 MG/ML 2 ML VIAL IV PRN (13:56)
--- NOTE | 2024-04-24 14:00 | Emergency Department Note ---
History of Present Illness General Chief complaint: Cardiac Assessment Stated complaint: Post CA Time Seen by Provider: 04/24/24 13:47 Home Medications Medication Instructions Recorded Confirmed Type multivitamin 1 tab PO DAILY 04/11/19 04/23/24 History aspirin 81 mg tablet,delayed 81 mg PO QAM #0 tabs 03/15/24 04/23/24 Rx release docusate sodium 100 mg capsule 100 mg PO BID 04/03/24 04/23/24 History (Colace) polyethylene glycol 3350 17 17 g PO DAILY PRN 04/03/24 04/23/24 History gram/dose oral powder (Miralax) sennosides 8.6 mg tablet (Senokot) 8.6 mg PO DAILY PRN 04/03/24 04/23/24 History apixaban 5 mg tablet (Eliquis) 5 mg PO BID #180 tabs 04/10/24 04/23/24 Rx atorvastatin 40 mg tablet 40 mg PO QAM #90 tabs 04/10/24 04/23/24 Rx empagliflozin 10 mg tablet 10 mg PO DAILY #90 tabs 04/10/24 04/23/24 Rx (Jardiance) trazodone 100 mg tablet 100 mg PO DAILY #90 tabs 04/10/24 04/23/24 Rx digoxin 125 mcg (0.125 mg) tablet 0.125 mg PO DAILY@1600 #90 tabs 04/23/24 04/23/24 Rx (Digitek) metoprolol succinate 100 mg 150 mg (1.5 x 100 mg) PO DAILY #45 04/23/24 04/23/24 Rx tablet,extended release 24 hr tabs Allergies Allergy/AdvReac Type Severity Reaction Status Date / Time No Known Drug Allergies Allergy Verified 04/23/24 10:07 Past Med/Surg History Problem List Acute HFrEF (heart failure with reduced ejection fraction) Acute systolic CHF (congestive heart failure) Stroke History of colon polyps Screening for prostate cancer Encounter for health maintenance examination Osteoarthritis of left knee Osteoarthritis of left shoulder Atrial fibrillation with rapid ventricular response (Acute) Medical History Acute respiratory failure with hypoxia Mitral regurgitation Cardiomyopathy Atrial fibrillation Surgical History S/P tonsillectomy S/P vasectomy S/P shoulder surgery Family History Mother Alzheimer disease Father Alzheimer disease Aunt Breast cancer Grandfather (Paternal) Myocardial infarction Other Family history non-contributory Denies family history of Ovarian cancer Prostate cancer Colorectal cancer Social History Smoking Status: Never smoker Tobacco Type: Cigarettes Age Started Using Tobacco: 18; Age Quit Using Tobacco: 24; packs per day: 0.25; Second Hand Exposure: No; Do You Dip or Chew Tobacco: No; Hx Alcohol Use: Yes Alcohol type: beer Hx Substance Use: No Preferred Language: [place] Citizen Communication Ability: Unable 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 Beliefs That Will Affect Care: None marital status: Current Living Situation: Spouse current occupational status: retired current occupation: [employer] How many Children do You have: 2 How many Children do You have Comment: girl, boy Feels Safe at Home: Yes Childhood Exposure to Second-Hand Smoke: Yes Diet: regular Diet Comment: everything in moderation caffeine: Yes Dental Care, Regularly: Yes Physical Activity Frequency: Daily Physical Activity Frequency Comment: weight training Seatbelt Use: always Sunscreen Use: Yes Do you think of yourself as: straight/heterosexual Gender Identity: Male Assistive Devices: None Physical Exam Vital Signs Vital Signs - 24 hr 04/24/24 13:46 04/24/24 13:46 04/24/24 13:52 Temperature 36.7 C Temperature Source Axillary Pulse Rate 71 Respiratory Rate 20 Respiratory Effort / Characteristics Gasping/Agonal Pulse Oximetry 94 90 Oxygen Delivery Method Non-rebreather Non-rebreather Oxygen Flow Rate 15 Sepsis Recent Fever Within 48 Hours No Sepsis New/Unexplained Change in Mental Status N/A Sepsis Action Taken by Nursing No Action Required Discharge Plan Visit Data Chief Complaint: Cardiac Assessment Stated Complaint: Post CA ED Provider: Sanju Zavala Forms Stand Alone Forms: My [employer] Prescriptions Prescriptions: No Action Eliquis 5 mg tablet 5 mg PO BID Qty: 180 3RF atorvastatin 40 mg tablet 40 mg PO QAM Qty: 90 3RF Jardiance 10 mg tablet 10 mg PO DAILY Qty: 90 0RF trazodone 100 mg tablet 100 mg PO DAILY Qty: 90 1RF docusate sodium [Colace] 100 mg capsule 100 mg PO BID polyethylene glycol 3350 [Miralax] 17 gram/dose powder 17 g PO DAILY PRN sennosides [Senokot] 8.6 mg tablet 8.6 mg PO DAILY PRN digoxin [Digitek] 125 mcg (0.125 mg) tablet 0.125 mg PO DAILY@1600 Qty: 90 3RF metoprolol succinate 100 mg tablet extended release 24 hr 150 mg PO DAILY Qty: 45 1RF multivitamin Tablet 1 tab PO DAILY Rx Instructions: Unable to verify OTC meds at this date/time. aspirin 81 mg Tablet,Delayed Release (Dr/Ec) 81 mg PO QAM Qty: 0 0RF Referrals Referrals: Matt Vanegas MD [Primary Care Provider] -
[2024-04-24] MEDS: HYDROmorphone INJ 1 MG/ML SYRINGE IV STA (14:05)
--- NOTE | 2024-04-24 14:06 | Emergency Department Note ---
History of Present Illness General Chief Complaint: Cardiac Assessment Stated Complaint: Post CA Time Seen by Provider: 04/24/24 13:47 Source: family History of Present Illness Provider complaint: collapsed during activity Bystander CPR performed: Yes AED applied by bystander/custom ski maker: Yes Shock advised: Yes Number of shocks delivered: >3 (5) Initial findings in the field: unresponsive ROSC in the field: Yes Treatments prior to arrival: BMV Home Medications Medication Instructions Recorded Confirmed Type multivitamin 1 tab PO DAILY 04/11/19 04/23/24 History aspirin 81 mg tablet,delayed 81 mg PO QAM #0 tabs 03/15/24 04/23/24 Rx release docusate sodium 100 mg capsule 100 mg PO BID 04/03/24 04/23/24 History (Colace) polyethylene glycol 3350 17 17 g PO DAILY PRN Constipation 04/03/24 04/23/24 History gram/dose oral powder (Miralax) sennosides 8.6 mg tablet (Senokot) 8.6 mg PO DAILY PRN Constipation 04/03/24 04/23/24 History apixaban 5 mg tablet (Eliquis) 5 mg PO BID #180 tabs 04/10/24 04/24/24 Rx atorvastatin 40 mg tablet 40 mg PO QAM #90 tabs 04/10/24 04/24/24 Rx empagliflozin 10 mg tablet 10 mg PO DAILY #90 tabs 04/10/24 04/24/24 Rx (Jardiance) trazodone 100 mg tablet 100 mg PO DAILY #90 tabs 04/10/24 04/24/24 Rx digoxin 125 mcg (0.125 mg) tablet 0.125 mg PO DAILY@1600 #90 tabs 04/23/24 04/24/24 Rx (Digitek) metoprolol succinate 100 mg 150 mg (1.5 x 100 mg) PO DAILY #45 04/23/24 04/23/24 Rx tablet,extended release 24 hr tabs Allergies Allergy/AdvReac Type Severity Reaction Status Date / Time No Known Drug Allergies Allergy Verified 04/23/24 10:07 Past Med/Surg History Problem List (Updated 04/24/24 @ 20:31 by Sanju Zavala MD) Cardiac arrest (Acute) Admission for end of life care Acute HFrEF (heart failure with reduced ejection fraction) Acute systolic CHF (congestive heart failure) Stroke History of colon polyps Screening for prostate cancer Encounter for health maintenance examination Osteoarthritis of left knee Osteoarthritis of left shoulder Atrial fibrillation with rapid ventricular response (Acute) Medical History Acute respiratory failure with hypoxia Mitral regurgitation Cardiomyopathy Atrial fibrillation Surgical History S/P tonsillectomy S/P vasectomy S/P shoulder surgery Family History Mother Alzheimer disease Father Alzheimer disease Aunt Breast cancer Grandfather (Paternal) Myocardial infarction Other Family history non-contributory Denies family history of Ovarian cancer Prostate cancer Colorectal cancer Social History Smoking Status: Unknown if ever smoked Tobacco Type: Cigarettes Age Started Using Tobacco: 18; Age Quit Using Tobacco: 24; packs per day: 0.25; Second Hand Exposure: No; Do You Dip or Chew Tobacco: No; Hx Alcohol Use: No Hx Substance Use: No Preferred Language: Amharic Communication Ability: Unable Communication Ability Comment: Comfort Mortician Helper Required: No Beliefs That Will Affect Care: None marital status: Current Living Situation: Spouse current occupational status: retired current occupation: [employer] How many Children do You have: 2 How many Children do You have Comment: girl, boy Feels Safe at Home: Yes Childhood Exposure to Second-Hand Smoke: Yes Diet: regular Diet Comment: everything in moderation caffeine: Yes Dental Care, Regularly: Yes Physical Activity Frequency: Daily Physical Activity Frequency Comment: weight training Seatbelt Use: always Sunscreen Use: Yes Do you think of yourself as: straight/heterosexual Gender Identity: Male Assistive Devices: None Physical Exam Vital Signs: Vital Signs - 24 hr 04/24/24 13:46 04/24/24 13:46 04/24/24 13:52 Temperature 36.7 C Temperature Source Axillary Pulse Rate 71 Respiratory Rate 20 Respiratory Effort / Characteristics Gasping/Agonal Pulse Oximetry 94 90 Oxygen Delivery Me thod Non-rebreather Non-rebreather Oxygen Flow Rate 15 Sepsis Recent Feve r Within 48 Hours No Sepsis New/Unexpla ined Change in Men joseph Status N/A Sepsis Action Take n by Nursing No Action Required Physical Exam: Physical Exam GENERAL: Patient moaning HENT: Exam performed. CV: Normal rate, regular rhythm, normal heart sounds and intact distal pulses. There is no peripheral edema. Palpable radial pulses bue. PULM/CHEST: Rhonchi bilaterally. Course Course 1243: Received call from EMS. 78-year-old male who suffered a witnessed cardiac arrest. Patient has a history of CVA. EMS reported that the patient had CPR performed on him by the fire department and an AED was applied and 5 defibri llation shocks were received by the patient. The patient did have ROSC in the field but then the at bedside stated that the patient was DNR/DNI. EMS reports that the does not want the patient to receive any cardiac medications, any ACLS medications, any intubation, or any more compressions. EMS is requesting fentanyl for the patient to make him more comfortable and are requesting to come to the hospital for palliative care. 1347: The patient was evaluated in room C3. son and [id number] are at bedside. They confirmed that the patient is DNR/DNI. Patient has paperwork at bedside stating that he is DNR/DNI. , son, and [id number] confirmed that the patient is DNR/DNI and they do not wish for any aggressive treatments, any ACLS medications, any diagnostic imaging, or any laboratory testing. They requested the patient be comfort measures only. Dilaudid ordered for the patient and comfort measure order set utilized for the patient. Discussed the case with Dr. Padmaja Holcomb hospitalist who will evaluate the patient for admission for palliative care. Medical Decision Making MDM Narrative 1243: Received call from EMS. 78-year-old male who suffered a witnessed cardiac arrest. Patient has a history of CVA. EMS reported that the patient had CPR performed on him by the fire department and an AED was applied and 5 defibrillation shocks were received by the patient. The patient did have ROSC in the field but then the at bedside stated that the patient was DNR/DNI. EMS reports that the does not want the patient to receive any cardiac medications, any ACLS medications, any intubation, or any more compressions. EMS is requesting fentanyl for the patient to make him more comfortable and are requesting to come to the hospital for palliative care. 1347: The patient was evaluated in room C3. son and [id number] are at bedside. They confirmed that the patient is DNR/DNI. Patient has paperwork at bedside stating that he is DNR/DNI. , son, and [id number] confirmed that the patient is DNR/DNI and they do not wish for any aggressive treatments, any ACLS medications, any diagnostic imaging, or any laboratory testing. They requested the patient be comfort measures only. Dilaudid ordered for the patient and comfort measure order set utilized for the patient. Discussed the case with Dr. [facility] hospitalist who will evaluate the patient for admission for palliative care. Impression & Plan Cardiac arrest Discharge Plan Visit Data Chief Complaint: Cardiac Assessment Stated Complaint: Post CA ED Provider: Sanju Zavala Discharge Problem: Cardiac arrest Patient Disposition: Admitted As Inpatient Discharge Instructions Interventions: ED Discharge Assessment Last Done: 04/24/24 17:01
--- NOTE | 2024-04-24 14:39 | History & Physical Report ---
Date of Service April 24, 2024 Assessment & Plan (1) Admission for end of life care: Plan: Patient with recent severe cardiomyopathy, heart failure and stroke. DNR/DNI last admission. Cardiac arrest with successful resiscutation outside hospital but patient is non responsive to noxious stimuli and family wish to abide by his previous wishes and do not want any further workup at this time. Admission for comfort care only Morphine drip for shortness of breath and pain Ativan for agitation Ondansetron for nausea Atropine for secretions Plan VTE Prophylaxis - end of life care Diet - NPO Disposition - admit to med/surg Admission and Anticipated Discharge Date Admission Date: April 24, 2024 History of Present Illness Chief Complaint: Cardiac arrest Primary Care Provider: Matt Vanegas MD Bladimir Cleveland is a 78 year old male with recent CVA, cardiomyopathy and heart failure who presented to the ER as an out of hospital cardiac arrest. He is not for resuscitation however he received x5 cardiac defibrillation with successful regain of pulse. He is unresponsive and unable to contribute to discussions at this time. His family ( at bedside) wish to follow his previous wishes and do comfort care only measures at this time. Allergies Allergy/AdvReac Type Severity Reaction Status Date / Time No Known Drug Allergies Allergy Verified 04/23/24 10:07 Home Medications Medication Instructions Recorded Confirmed Type multivitamin 1 tab PO DAILY 04/11/19 04/23/24 History aspirin 81 mg tablet,delayed 81 mg PO QAM #0 tabs 03/15/24 04/23/24 Rx release docusate sodium 100 mg capsule 100 mg PO BID 04/03/24 04/23/24 History (Colace) polyethylene glycol 3350 17 17 g PO DAILY PRN Constipation 04/03/24 04/23/24 History gram/dose oral powder (Miralax) sennosides 8.6 mg tablet (Senokot) 8.6 mg PO DAILY PRN Constipation 04/03/24 04/23/24 History apixaban 5 mg tablet (Eliquis) 5 mg PO BID #180 tabs 04/10/24 04/24/24 Rx atorvastatin 40 mg tablet 40 mg PO QAM #90 tabs 04/10/24 04/24/24 Rx empagliflozin 10 mg tablet 10 mg PO DAILY #90 tabs 04/10/24 04/24/24 Rx (Jardiance) trazodone 100 mg tablet 100 mg PO DAILY #90 tabs 04/10/24 04/24/24 Rx digoxin 125 mcg (0.125 mg) tablet 0.125 mg PO DAILY@1600 #90 tabs 04/23/24 04/24/24 Rx (Digitek) metoprolol succinate 100 mg 150 mg (1.5 x 100 mg) PO DAILY #45 04/23/24 04/23/24 Rx tablet,extended release 24 hr tabs Past Med/Surg History Problem List (Updated 04/24/24 @ 20:31 by Sanju Zavala MD) Cardiac arrest (Acute) Admission for end of life care Acute HFrEF (heart failure with reduced ejection fraction) Acute systolic CHF (congestive heart failure) Stroke History of colon polyps Screening for prostate cancer Encounter for health maintenance examination Osteoarthritis of left knee Osteoarthritis of left shoulder Atrial fibrillation with rapid ventricular response (Acute) Medical History Acute respiratory failure with hypoxia Mitral regurgitation Cardiomyopathy Atrial fibrillation Surgical History S/P tonsillectomy S/P vasectomy S/P shoulder surgery Family History Mother Alzheimer disease Father Alzheimer disease Aunt Breast cancer Grandfather (Paternal) Myocardial infarction Other Family history non-contributory Denies family history of Ovarian cancer Prostate cancer Colorectal cancer Social History Smoking Status: Unknown if ever smoked Tobacco Type: Cigarettes Age Started Using Tobacco: 18; Age Quit Using Tobacco: 24; packs per day: 0.25; Second Hand Exposure: No; Do You Dip or Chew Tobacco: No; Hx Alcohol Use: No Hx Substance Use: No Preferred Language: Spanish Communication Ability: Unable Communication Ability Comment: Comfort Postdoctoral Research Fellow Required: No Beliefs That Will Affect Care: None marital status: Current Living Situation: Spouse current occupational status: retired current occupation: [employer] How many Children do You have: 2 How many Children do You have Comment: girl, boy Feels Safe at Home: Yes Childhood Exposure to Second-Hand Smoke: Yes Diet: regular Diet Comment: everything in moderation caffeine: Yes Dental Care, Regularly: Yes Physical Activity Frequency: Daily Physical Activity Frequency Comment: weight training Seatbelt Use: always Sunscreen Use: Yes Do you think of yourself as: straight/heterosexual Gender Identity: Male Assistive Devices: None Review of Systems Review of Systems: Unobtainable due to reduced consciousness Physical Exam Constitutional: + acute distress (moaning prior to Dilau did) Respiratory: + labored breathing and + uses accessory muscles; + abnormal respiratory effort (irregular) Cardiovascular: Rate/Rhythm: regular rate and + irregularly irregular Neurologic: + not awake Results & Data Results & Data Vital Signs (Past 12 Hours) Vital Signs Temp Pulse Resp Pulse Ox O2 Del Method O2 Flow Rate 04/24/24 13:52 90 Non-rebreather 15 04/24/24 13:46 36.7 C 71 20 94 Non-rebreather Code Status & VTE Plan VTE Prophylaxis Plan VTE Prophylaxis will be ordered: No Reason for no VTE drug order: Treatment not indicated PG Care Time/CCT Total # of Minutes Spent Total Time Spent with Patient: Total time spent is greater than 50% in coordination of care (as documented) at patient's floor/unit and/or counseling patient: Coding Level of Care Code 20035 INT INP/OBS CARE 2/55MIN Diagnoses Admission for end of life care Z51.5
[2024-04-24] MEDS: MoRPHine SULF/NSS 100 MG/100 ML BAG IV SCH (16:15)
[2024-04-24] MEDS: STAT IV Infusion **Titration per Protocol STA (16:17)
[2024-04-24 16:21] VITALS: PULSE 92; RESP 12; O2SAT 92
[2024-04-24] MEDS: MoRPHine BOLUS from BAG IV PRN (16:41)
[2024-04-24] MEDS ORDERED: HALOPERIDOL ORAL SOLN 2 MG/ML PO PRN (17:17)
[2024-04-24] MEDS ORDERED: PROCHLORPERAZINE 25 MG SUPP PR PRN (17:17)
[2024-04-24] MEDS: GLYCOPYRROLATE 0.2 MG/ML VIAL IV PRN (17:34)
[2024-04-24] MEDS: LORazepam 2 MG/1 ML VIAL IV PRN (18:05)
--- NOTE | 2024-04-25 07:58 | Hospitalist Progress Note ---
Date of Service April 25, 2024 Assessment & Plan (1) Admission for end of life care: Plan: Patient with recent severe cardiomyopathy, heart failure and stroke. DNR/DNI last admission. Cardiac arrest with successful resuscitation outside hospital - per family, patient's status slightly improved today. GCS of 8-9 - opens eyes spontaneously, no verbal communication, withdraws to noxious stimuli. Could consider TTE if this would help family decide on direction of care, though even if cardiac function somehow improved, patient would most likely not be a good candidate for ICD placement, also unsure what his new functional baseline would be. Will continue to assess and coordinate care plan with family. Morphine drip for shortness of breath and pain Ativan for agitation Ondansetron for nausea Atropine for secretions Plan VTE Prophylaxis - deferred, end of life care Diet - NPO Admission and Anticipated Discharge Date Admission Date: April 24, 2024 Supervising Physician Co-Signing Physician Notes Attending Physician Supervision Note: I independently interviewed and examined the patient and verified the maza history and physical, reviewed labs and image studies and agree with findings and care plan noted above. Cardiac arrest with resuscitation - was transitioned to comfort care. patient opening eyes this morning spontaneous but unresponsive. family questioning their decision. -discussed with family that underlying severe CMP will result in overall poor prognosis. -will continue to follow for any change in status -continue comfort care. Subjective Patient seen at bedside with family present in room. Family feels patient seems a bit better than yesterday, is now spontaneously opening his eyes - as a result, they are now unsure whether comfort care only is the best option. Review of Systems Review of Systems: Unobtainable due to reduced consciousness Physical Exam Physical Exam: General: NAD, opens eyes spontaneously Cardiac: Regular rate and rhythm, no murmurs appreciated Respiratory: Lungs clear to auscultation bilaterally, No increased work of breathing Neuro: Opens eyes spontaneously, non-verbal and unable to follow commands, withdraws to painful stimuli Results & Data Results & Data Vital Signs (Past 12 Hours) Vital Signs O2 Del Method 04/24/24 21:50 Room Air Resident Activity Tracking Resident Involvement: Resident Care Provided Care Provided: Adult [facility]
[2024-04-25] MEDS: HYOSCYAMINE SULFATE 0.125 MG TAB SL PRN (14:44)
[2024-04-25] MEDS: ATROPINE SULFATE 1% OP SOLN 5 ML BTL SL PRN (18:26)
--- NOTE | 2024-04-25 19:40 | Death Pronouncement Note ---
Date of Service April 25, 2024 Pronouncement Note Admission Date Admission Date: April 24, 2024 Date and Time of Date of : 04/25/24 Time of : 19:25 Contributing Factors (1) Admission for end of life care: Summary Additional details: I was called by nursing staff to pronounce the of Bladimir Cleveland (: 1945) on April 25, 2024. Upon entering the room, patient was found to be in a terminal state. They were unresponsive to, and did not withdrawal from, verbal or tactile stimuli. They were unresponsive to corneal, pupillary, and oculocephalic reflexes. On cardiopulmonary exam, they were found to be without detectable carotid pulses, and without spontaneous heart tones or respirations. Time of was pronounced by me on 04/25/24 at 19:25. Attending physician was notified. Family/next of kin was at bedside. Additional Data Attending physician: Agueda Morejon MD
--- NOTE | 2024-04-26 06:39 | Discharge Summary ---
Date of Service April 25, 2024 Admission HPI Per Admitting Provider Bladimir Cleveland is a 78 year old male with recent CVA, cardiomyopathy and heart failure who presented to the ER as an out of hospital cardiac arrest. He is not for resuscitation however he received x5 cardiac defibrillation with successful regain of pulse. He is unresponsive and unable to contribute to discussions at this time. His family ( at bedside) wish to follow his previous wishes and do comfort care only measures at this time. Admission Exam Per Admitting Provider Constitutional: + acute distress (moaning prior to Dilau did) Respiratory: + labored breathing and + uses accessory muscles; + abnormal respiratory effort (irregular) Cardiovascular: Rate/Rhythm: regular rate and + irregularly irregular Neurologic: + not awake Principal Diagnosis End of life care Discharge Exam . Discharge Data Allergies Allergy/AdvReac Type Severity Reaction Status Date / Time No Known Drug Allergies Allergy Verified 04/23/24 10:07 Consultations 04/24/24 13:58 ED Decision to Admit Stat Hospital Course (1) Admission for end of life care: Patient with recent severe cardiomyopathy, heart failure and stroke. DNR/DNI last admission. Cardiac arrest with successful resuscitation outside hospital - admitted for comfort care. Morphine drip for shortness of breath and pain Ativan for agitation Ondansetron for nausea Atropine for secretions Time of : 1900 Total Time Total Time Spent Total Time Spent (In Minutes): see attending attestation Discharge Plan Discharge Items Patient Disposition: Other Date/Time: 04/25/24 19:28 Resident Activity Tracking Resident Involvement: Resident Care Provided Care Provided: Adult Hospital Medicine
== END 2024-04-25 20:36 | disposition expired | DRG 951 ==
LOC: ED 13:32 → 3E 14:25 → SUATTDRO 14:25 → 3E 17:01